=== PATIENT | male | born 1985 | race Caucasian/White ===

== ENCOUNTER 2016-05-05 13:10 | Outpatient (CLI) | payer MEDICAID | END 2016-05-05 13:11 | disposition home or self-care (01) | DX: Z79.899 Other long term (current) drug therapy (principal) ==

== ENCOUNTER 2016-08-04 15:09 | Emergency (ER) | payer MEDICAID, OTHER ==
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
[2016-08-04] MEDS ORDERED: HYDROcod/ACETAM 5/325 MG TABLET ONE (16:04)
[2016-08-04] MEDS ORDERED: METHOCARBAMOL 500 MG TABLET PO ONE (16:05)
[2016-08-04] MEDS: METHOCARBAMOL 500 MG TABLET PO STA (16:07)
[2016-08-04] MEDS: HYDROcod/ACETAM 5/325 MG TABLET PO STA (16:07)
[2016-08-04 16:49] VITALS: BP 141/84
[2016-08-04] MEDS ORDERED: HYDROcod/ACET 5/325 Prepack 6 PO ONE (17:37)
[2016-08-04] MEDS: HYDROcod/ACET 5/325 Prepack 6 PO ONE (17:42)
--- NOTE | 2016-08-04 17:45 | XRAY Preliminary Report ---
Exam: XR Cervical Spine 2 View IMPRESSION: Normal cervical spine radiography. [facility] SITE ID: [id number]
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
== END 2016-08-04 17:54 | disposition home or self-care (01) ==
LOC: ED 15:09
DX: S16.1XXA Strain of muscle, fascia and tendon at neck level, initial encounter (principal); Y04.2XXA Assault by strike against or bumped into by another person, initial encounter; Y92.019 Unspecified place in single-family (private) house as the place of occurrence of the external cause; F17.200 Nicotine dependence, unspecified, uncomplicated
CPT/HCPCS: 72040; 99283; 99284

== ENCOUNTER 2017-04-16 15:00 | Outpatient (CLI) | payer MEDICAID | END 2017-04-16 15:15 | disposition home or self-care (01) | LOC: RT.N 15:00 | PROVIDERS: ATTEND Family Medicine | DX: R07.9 Chest pain, unspecified (principal) | CPT/HCPCS: 93005 ==

== ENCOUNTER 2017-04-16 15:54 | Outpatient (CLI) | payer MEDICAID, OTHER ==
--- NOTE | 2017-04-17 12:31 | XRAY Report ---
DATE OF SERVICE: 04/16/2017 TWO-VIEW CHEST: 04/16/2017 CLINICAL INDICATION: Obesity, chest pain. FINDINGS: Frontal and lateral views of the chest demonstrate a normal cardiac silhouette. The lungs are clear. No effusion or pneumothorax is present. IMPRESSION: NORMAL CHEST. TD: 04/17/2017 12:29
== END 2017-04-16 15:55 | disposition home or self-care (01) ==
LOC: DI.N 15:54
PROVIDERS: ATTEND Family Medicine
DX: R07.9 Chest pain, unspecified (principal); E66.9 Obesity, unspecified
CPT/HCPCS: 71046

== ENCOUNTER 2017-05-11 10:44 | Emergency (ER) | payer MEDICAID ==
--- NOTE | 2017-05-11 11:15 | ED Physician Documentation ---
PD HPI LOWER EXT INJURY - Stated complaint Stated Complaint: LEG PX - Chief complaint Chief Complaint: Ext Problem - History obtained from History obtained from: Patient - History of Present Illness PD HPI LOW EXT INJURY LOCATION: Left, Lower leg Type of injury: Other (he was walking brisk and felt a pop and pain in upper calf/behind the knee area.) Where injury occurred: Work Timing - onset: Yesterday Timing - details: Abrupt onset, Still present Improved by: Rest Worsened by: Moving, Palpating Associated symptoms: No: Weakness, Numbness Similar symptoms before: Has not had sx before Recently seen: Not recently seen Review of Systems Constitutional: denies: Fever, Chills Skin: denies: Rash, Lesions Neurologic: denies: Focal weakness, Numbness PD PAST MEDICAL HISTORY - Past Medical History Past Medical History: Yes Cardiovascular: None Respiratory: None Neuro: None Psych: Depression, Bipolar disorder Musculoskeletal: None - Past Surgical History Past Surgical History: No - Present Medications Home Medications: Ambulatory Orders Medication Instructions Recorded Confirmed raNITIdine [Zantac] 150 mg PO DAILY 02/05/15 08/07/15 QUEtiapine [SEROquel] 50 mg PO DAILY 08/07/15 08/07/15 Loratadine 1 tab PO DAILY 05/11/17 Naproxen [Naprosyn] 500 mg PO BID PRN #20 tablet 05/11/17 Tramadol HCl 50 mg PO Q6H PRN #20 tablet 05/11/17 - Allergies Allergies/Adverse Reactions: Allergies Allergy/AdvReac Type Severity Reaction Status Date / Time No Known Drug Allergies Allergy Verified 05/11/17 10:50 - Social History Does the pt smoke?: Yes Smoking Status: Current every day smoker Does the pt drink ETOH?: No Does the pt have substance abuse?: No - Immunizations Immunizations are current?: Yes - POLST Patient has POLST: No PD ED PE NORMAL - Vitals Vital signs reviewed: Yes - General General: Alert and oriented X 3, No acute distress, Well developed/nourished - Cardiac Cardiac: RRR, No murmur - Back Back: No spinal TTP - Derm Derm: Normal color, Warm and dry, No rash - Extremities Extremities: Other (left leg with teenderness posterior upper calf and to the popliteal area of the knee. No obvious deformity. Ligament testing is without laxity. Hamstrings feel intact as does Achilles. Some swelling in upper calf area on octavio left. Pain with knee flexion against resistence. Not painful with plantar flexion against resistance. ) - Neuro Neuro: No motor deficit, No sensory deficit Results - Vitals Vitals: Vital Signs - 24 hr 05/11/17 05/11/17 10:46 12:39 Temperature 36.9 C 36.7 C Heart Rate 100 80 Respiratory 16 16 Rate Blood Pressure 122/72 132/74 H O2 Saturation 98 98 Oxygen O2 Source Room air - Rads (name of study) tib/fib Radiology: Prelim report reviewed (no fractures) PD MEDICAL DECISION MAKING - ED course Complexity details: reviewed results, considered differential, d/w patient Departure - Departure Disposition: 01 Home, Self Care Clinical Impression: Strain of calf muscle Qualifiers: Encounter type: initial encounter Laterality: left Qualified Code(s): S86.812A - Strain of other muscle(s) and tendon(s) at lower leg level, left leg, initial encounter Condition: Stable Record reviewed to determine appropriate education?: Yes Instructions: ED Strain Muscle Ext Follow-Up: Daryl Toney MD [Primary Care Provider] - Black Hurst MD [Provider Admit Priv/Credential] - Prescriptions: Naproxen [Naprosyn] 500 mg PO BID PRN #20 tablet PRN Reason: Pain Tramadol HCl 50 mg PO Q6H PRN #20 tablet PRN Reason: Pain Comments: Knee brace to reduce range of motion and provide comfort and support. Use crutches if needed for partial weightbearing. Progress weightbearing as able and then after week or so if it is feeling better then start going without the knee brace if he can. This is likely going to take 3 or 4 weeks to fully heal up back to normal use. I presume he tore part of the muscles. He does not feel like it tore a tendon that should be able to heal without repair per se. Use naproxen or ibuprofen twice daily for the next 7-10 days and add Tylenol or tramadol if needed for pains. Recheck if not better quite a bit over the next week or 10 days. Discharge Date/Time: 05/11/17 13:00
[2017-05-11] MEDS ORDERED: IBUPROFEN 600 MG TABLET PO STA (11:29)
[2017-05-11] MEDS ORDERED: traMADol 50 MG TABLET PO STA (11:30)
[2017-05-11 12:40] VITALS: BP 132/74
--- NOTE | 2017-05-11 12:52 | XRAY Report ---
EXAM: LEFT TIBIA/FIBULA RADIOGRAPHY 2 VIEWS EXAM DATE: 05/11/2017. CLINICAL HISTORY: Left calf/lower leg pain, onset yesterday. COMPARISON: None. TECHNIQUE: AP and lateral views. FINDINGS: Bones: Normal. No fracture or bone lesion. Joints: The visualized knee and ankle joints appear normal. No knee joint effusion visible. Soft Tissues: Normal. No soft tissue swelling. IMPRESSION: Normal left tibia/fibula radiography. [facility] Referring Provider Line: [phone] SITE ID: [id number]
== END 2017-05-11 13:00 | disposition home or self-care (01) ==
LOC: ED 10:44
DX: S86.812A Strain of other muscle(s) and tendon(s) at lower leg level, left leg, initial encounter (principal); X58.XXXA Exposure to other specified factors, initial encounter; Y93.01 Activity, walking, marching and hiking; F17.200 Nicotine dependence, unspecified, uncomplicated
CPT/HCPCS: 73590; 99283; A9270

== ENCOUNTER 2018-07-04 10:35 | Emergency (ER) | payer MEDICAID ==
[2018-07-04 10:42] VITALS: BP 146/95
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
== END 2018-07-04 10:58 | disposition home or self-care (01) ==
LOC: ED 10:35
DX: K02.9 Dental caries, unspecified (principal); F17.200 Nicotine dependence, unspecified, uncomplicated
CPT/HCPCS: 99283

== ENCOUNTER 2018-07-24 13:52 | Emergency (ER) | payer MEDICAID ==
[2018-07-24 14:24] VITALS: BP 137/89
[2018-07-24] MEDS ORDERED: CLINDAMYCIN 150 MG CAPSULE PO STA (14:58)
[2018-07-24] MEDS ORDERED: HYDROcod/ACETAM 5/325 MG TABLET PO STA (14:58)
--- NOTE | 2018-07-24 15:00 | ED Physician Documentation ---
PD HPI HEENT - Stated complaint Stated Complaint: TOOTH PX - Chief complaint Chief Complaint: Heent - History obtained from History obtained from: Patient - History of Present Illness Timing - onset: Other (He is been dealing with a dental infection from the left maxilla that is quite painful. He has an appoint with [facility] in about 2 weeks, but pain is uncontrolled. He was seen here recently and placed on penicillin which he is finished, no real help with that. Hydrocodone was helpful.) Review of Systems Constitutional: reports: Reviewed and negative Nose: reports: Reviewed and negative Throat: reports: Dental pain / toothache. denies: Oral lesions / sores, Sore throat Cardiac: denies: Chest pain / pressure PD PAST MEDICAL HISTORY - Past Medical History Cardiovascular: None Respiratory: None Psych: Depression, Bipolar disorder Musculoskeletal: None - Past Surgical History Past Surgical History: No - Present Medications Home Medications: Ambulatory Orders Medication Instructions Recorded Confirmed QUEtiapine [SEROquel] 50 mg PO DAILY 08/07/15 08/07/15 Hydrocodone/Acetaminophen 1 - 2 each PO Q6H PRN #14 tablet 07/04/18 [Hydrocodon-Acetaminophen 5-325] Penicillin V Potassium 500 mg PO Q6HR #40 tablet 07/04/18 QUEtiapine [SEROquel] 200 mg PO QPM 07/04/18 07/04/18 Clindamycin HCl [Clindamycin 300MG 300 mg PO Q6H #40 capsule 07/24/18 CAP] Hydrocodone/Acetaminophen 1 - 2 each PO Q6H PRN #14 tablet 07/24/18 [Hydrocodon-Acetaminophen 5-325] - Allergies Allergies/Adverse Reactions: Allergies Allergy/AdvReac Type Severity Reaction Status Date / Time No Known Drug Allergies Allergy Verified 07/24/18 14:58 - Social History Does the pt smoke?: Yes Smoking Status: Current every day smoker Does the pt drink ETOH?: No Does the pt have substance abuse?: No - Immunizations Immunizations are current?: Yes - POLST Patient has POLST: No PD ED PE NORMAL - Vitals Vital signs reviewed: Yes - General General: Alert and oriented X 3, No acute distress - HEENT HEENT: Other (Generally poor dentition, tooth in question is a left maxillary premolar that is tender but there is no trismus, sublingual edema, or facial or gingival swelling.) - Neck Neck: Supple, no meningeal sign, No bony TTP - Neuro Neuro: Alert and oriented X 3, Normal speech Results - Vitals Vitals: Vital Signs - 24 hr 07/24/18 14:21 Temperature 37.3 C Heart Rate 105 H Respiratory 17 Rate Blood Pressure 137/89 H O2 Saturation 98 Oxygen O2 Source Room air Departure - Departure Disposition: Home, Self Care Clinical Impression: Toothache Condition: Good Record reviewed to determine appropriate education?: Yes Instructions: ED Tooth Pain Follow-Up: Panchito Stuart DDS [Provider Admit Priv/Credential] - Prescriptions: Clindamycin HCl [Clindamycin 300MG CAP] 300 mg PO Q6H #40 capsule Hydrocodone/Acetaminophen [Hydrocodon-Acetaminophen 5-325] 1 - 2 each PO Q6H PRN #14 tablet PRN Reason: pain
== END 2018-07-24 15:11 | disposition home or self-care (01) ==
LOC: ED 13:52
DX: K08.89 Other specified disorders of teeth and supporting structures (principal); F17.200 Nicotine dependence, unspecified, uncomplicated
CPT/HCPCS: 99283; A9270

== ENCOUNTER 2018-09-28 17:21 | Emergency (ER) | payer MEDICAID ==
[2018-09-28 17:34] VITALS: BP 167/98
--- NOTE | 2018-09-28 17:51 | ED Physician Documentation ---
History of Present Illness - Stated complaint Stated Complaint: TOOTH PX - Chief complaint Chief Complaint: Heent - History obtained from History obtained from: Patient - History of Present Illness Timing: How many weeks ago (1) Pain level max: 8 Pain level now: 8 - Additonal information Additional information: 33-year-old male presents to the emergency department with frontal tooth pain. Ongoing for the past week. Has a long history of dental disease. States he is unable to see a dentist at this time. He is requesting pain medication and antibiotics. No fevers. Nothing makes it better or worse Review of Systems Constitutional: denies: Fever, Chills GI: denies: Vomiting Skin: denies: Rash Musculoskeletal: denies: Neck pain, Back pain Neurologic: denies: Headache PD PAST MEDICAL HISTORY - Past Medical History Past Medical History: Yes Cardiovascular: None Respiratory: COPD Psych: Depression, Bipolar disorder Musculoskeletal: None - Past Surgical History Past Surgical History: No - Present Medications Home Medications: Ambulatory Orders Medication Instructions Recorded Confirmed QUEtiapine [SEROquel] 50 mg PO DAILY 08/07/15 08/07/15 Hydrocodone/Acetaminophen 1 - 2 each PO Q6H PRN #14 tablet 07/04/18 [Hydrocodon-Acetaminophen 5-325] Penicillin V Potassium 500 mg PO Q6HR #40 tablet 07/04/18 QUEtiapine [SEROquel] 200 mg PO QPM 07/04/18 07/04/18 Clindamycin HCl [Clindamycin 300MG 300 mg PO Q6H #40 capsule 07/24/18 CAP] Hydrocodone/Acetaminophen 1 - 2 each PO Q6H PRN #14 tablet 07/24/18 [Hydrocodon-Acetaminophen 5-325] Hydrocodone/Acetaminophen 1 - 2 each PO Q6H PRN #14 tablet 09/28/18 [Hydrocodon-Acetaminophen 5-325] Penicillin V Potassium 500 mg PO Q6HR #40 tablet 09/28/18 - Allergies Allergies/Adverse Reactions: Allergies Allergy/AdvReac Type Severity Reaction Status Date / Time No Known Drug Allergies Allergy Verified 09/28/18 17:33 - Social History Does the pt smoke?: Yes Smoking Status: Current every day smoker Does the pt drink ETOH?: No Does the pt have substance abuse?: No - Immunizations Immunizations are current?: Yes - POLST Patient has POLST: No PD ED PE NORMAL - Vitals Vital signs reviewed: Yes - General General: Alert and oriented X 3, No acute distress - HEENT HEENT: Moist mucous membranes, Other (diffuse dental decay. no drainable absces s. ) - Neck Neck: Supple, no meningeal sign - Cardiac Cardiac: RRR - Respiratory Respiratory: No respiratory distress, Clear bilaterally - Derm Derm: Warm and dry - Neuro Neuro: Alert and oriented X 3 - Psych Psych: Normal mood, Normal affect Results - Vitals Vitals: Vital Signs - 24 hr 09/28/18 17:31 Temperature 36.7 C Heart Rate 94 Respiratory 20 Rate Blood Pressure 167/98 H O2 Saturation 95 Oxygen O2 Source Room air PD MEDICAL DECISION MAKING - ED course Complexity details: reviewed old records, considered differential, d/w patient ED course: Patient with diffuse dental decay. Will place on pain medication and antibiotics. We will follow-up with his doctor for further care. Patient counseled regarding signs and symptoms for which I believe and urgent re- evaluation would be necessary. Patient with good understanding of and agreement to plan and is comfortable going home at this time This document was made in part using voice recognition software. While efforts are made to proofread this document, sound alike and grammatical errors may occur. Departure - Departure Disposition: 01 Home, Self Care Clinical Impression: Dental decay Condition: Good Instructions: ED Cavity Dental Follow-Up: your,dentist within 1 week [Other] Prescriptions: Penicillin V Potassium 500 mg PO Q6HR #40 tablet Hydrocodone/Acetaminophen [Hydrocodon-Acetaminophen 5-325] 1 - 2 each PO Q6H PRN #14 tablet PRN Reason: pain Comments: Take all antibiotics until gone. Return if you worsen. You need to follow-up with a dentist for further care. Do not drink alcohol or drive while on narcotic pain medicine. Note that many narcotic pain relievers also contain tylenol/acetaminophen. Please ensure that your total dose of acetaminophen from all sources does not exceed 3 grams (3000mg) per day. You may constipated on this medication, take a stool softener such as "Colace" twice a day while you are on it. Also recommend a jybq-awa-qppwfwa laxative such as senna or MiraLAX any day that you do not have a bowel movement. If you received narcotic pain medication in the emergency department, do not drive or operate machinery for the next 24 hours. Discharge Date/Time: 09/28/18 18:01
== END 2018-09-28 18:01 | disposition home or self-care (01) ==
LOC: ED 17:21
DX: K02.9 Dental caries, unspecified (principal); J44.9 Chronic obstructive pulmonary disease, unspecified; F17.200 Nicotine dependence, unspecified, uncomplicated
CPT/HCPCS: 99282; 99284

== ENCOUNTER 2018-10-21 17:06 | Emergency (ER) | payer MEDICAID, OTHER ==
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
--- NOTE | 2018-10-21 19:21 | ED Physician Documentation ---
PD HPI LOWER EXT INJURY - Stated complaint Stated Complaint: RT FOOT INJ/WORK - Chief complaint Chief Complaint: Ext Problem - History obtained from History obtained from: Patient, Family - History of Present Illness PD HPI LOW EXT INJURY LOCATION: Right, Ankle Type of injury: Crush (dock) Where injury occurred: Work Timing - onset: How many hours ago (4) Timing - duration: Hours (4) Timing - details: Abrupt onset Pain level max: 5 Pain level now: 3 Improved by: Rest, Ice, Immobilization Worsened by: Moving, Palpating Associated symptoms: Swelling. No: Weakness, Numbness, Tingling Contributing factors: No: Anticoagulated, Prior ortho surgery, Prosthetic joint Recently seen: Not recently seen Review of Systems Skin: denies: Rash Musculoskeletal: denies: Neck pain, Back pain Neurologic: denies: Focal weakness, Numbness PD PAST MEDICAL HISTORY - Past Medical History Cardiovascular: None Respiratory: COPD Psych: Depression, Bipolar disorder Musculoskeletal: None - Past Surgical History Past Surgical History: No - Present Medications Home Medications: Ambulatory Orders Medication Instructions Recorded Confirmed QUEtiapine [SEROquel] 50 mg PO DAILY 08/07/15 08/07/15 QUEtiapine [SEROquel] 200 mg PO QPM 07/04/18 07/04/18 - Allergies Allergies/Adverse Reactions: Allergies Allergy/AdvReac Type Severity Reaction Status Date / Time No Known Drug Allergies Allergy Verified 10/21/18 17:24 - Social History Does the pt smoke?: Yes Smoking Status: Current every day smoker Does the pt drink ETOH?: No Does the pt have substance abuse?: No - Immunizations Immunizations are current?: Yes - POLST Patient has POLST: No PD ED PE NORMAL - Vitals Vital signs reviewed: Yes - General General: Alert and oriented X 3, No acute distress - Derm Derm: Warm and dry - Extremities Extremities: No deformity, Other (Tender to palpation diffusely about the right foot and ankle. Neurovascularly intact. No lacerations.) - Neuro Neuro: Alert and oriented X 3 Results - Vitals Vitals: Oxygen O2 Source Room air - Rads (name of study) R foot xray Radiology: Prelim report reviewed, EMP read contemporaneously, See rad report (No acute abnormality) R ankle xray Radiology: Prelim report reviewed, EMP read contemporaneously, See rad report (No acute abnormality) PD MEDICAL DECISION MAKING - ED course Complexity details: reviewed results, re-evaluated patient, considered differential, d/w patient ED course: Patient with a right ankle sprain. No acute findings on x-ray. Placed in Aircast. Will weight-bear as tolerated. Patient counseled regarding signs and symptoms for which I believe and urgent re-evaluation would be necessary. Patient with good understanding of and agreement to plan and is comfortable going home at this time This document was made in part using voice recognition software. While efforts are made to proofread this document, sound alike and grammatical errors may occur. Departure - Departure Disposition: 01 Home, Self Care Clinical Impression: Right ankle sprain Qualifiers: Encounter type: initial encounter Involved ligament of ankle: unspecified ligament Qualified Code(s): S93.401A - Sprain of unspecified ligament of right ankle, initial encounter Right foot sprain Qualifiers: Encounter type: initial encounter Qualified Code(s): S93.601A - Unspecified sprain of right foot, initial encounter Condition: Good Instructions: ED Sprain Foot, ED Sprain Ankle Follow-Up: Whitney Roper PA-C [Primary Care Provider] - Within 1 week Comments: You may bear weight as tolerated. Return if you worsen. Your x-rays do not show any fractures today. Follow-up with your doctor in 1 week for repeat evaluation if you are still having pain. Discharge Date/Time: 10/21/18 19:34
[2018-10-21 19:35] VITALS: BP 155/87
== END 2018-10-21 19:34 | disposition home or self-care (01) ==
LOC: ED 17:06
DX: S93.401A Sprain of unspecified ligament of right ankle, initial encounter (principal); S93.601A Unspecified sprain of right foot, initial encounter; W23.0XXA Caught, crushed, jammed, or pinched between moving objects, initial encounter; Y92.89 Other specified places as the place of occurrence of the external cause; Y99.0 Civilian activity done for income or pay; F17.200 Nicotine dependence, unspecified, uncomplicated
CPT/HCPCS: 99282; 99283

== ENCOUNTER 2018-11-06 22:21 | Emergency (ER) | payer MEDICAID ==
[2018-11-06 22:29] VITALS: BP 160/97
[2018-11-06] MEDS ORDERED: HYDROcod/ACET 5/325 Prepack 4 PO STA (22:35)
[2018-11-06] MEDS ORDERED: CLINDAMYCIN 150 MG CAPSULE PO STA (22:35)
--- NOTE | 2018-11-06 22:38 | ED Physician Documentation ---
PD HPI HEENT - Stated complaint Stated Complaint: DENTAL PAIN - Chief complaint Chief Complaint: Heent - History obtained from History obtained from: Patient - History of Present Illness Timing - onset: Other (2 to 3 days of severe dental pain from a right mandibular premolar. He has a dental appointment coming up for same. No facial swelling. No fevers.) Review of Systems Constitutional: denies: Fever, Chills Nose: denies: Rhinorrhea / runny nose Throat: denies: Sore throat PD PAST MEDICAL HISTORY - Past Medical History Past Medical History: Yes Cardiovascular: None Respiratory: COPD Neuro: None Endocrine/Autoimmune: None GI: None : None HEENT: None Psych: Depression, Bipolar disorder Musculoskeletal: None Derm: None - Past Surgical History Past Surgical History: No - Present Medications Home Medications: Ambulatory Orders Medication Instructions Recorded Confirmed QUEtiapine [SEROquel] 50 mg PO DAILY 08/07/15 08/07/15 QUEtiapine [SEROquel] 200 mg PO QPM 07/04/18 07/04/18 Clindamycin HCl [Clindamycin 300MG 300 mg PO Q6H #28 capsule 11/06/18 CAP] Hydrocodone/Acetaminophen 1 - 2 each PO Q6H PRN #14 tablet 11/06/18 [Hydrocodon-Acetaminophen 5-325] - Allergies Allergies/Adverse Reactions: Allergies Allergy/AdvReac Type Severity Reaction Status Date / Time No Known Drug Allergies Allergy Verified 11/06/18 22:29 - Social History Does the pt smoke?: Yes Smoking Status: Current every day smoker Does the pt drink ETOH?: No Does the pt have substance abuse?: No - Immunizations Immunizations are current?: Yes - POLST Patient has POLST: No PD ED PE NORMAL - Vitals Vital signs reviewed: Yes - General General: Alert and oriented X 3, Other (He appears uncomfortable) - Neck Neck: Other (Generally poor dentition with a lot of cavities. The tender cavity in question is from right mandibular premolar which is eroded basically down to the gumline. There is no gingival swelling, facial swelling, or trismus. No sublingual edema.) - Neuro Neuro: Alert and oriented X 3, Normal speech Results - Vitals Vitals: Vital Signs - 24 hr 11/06/18 22:28 Temperature 36.5 C Heart Rate 82 Respiratory 18 Rate Blood Pressure 160/97 H O2 Saturation 98 Oxygen O2 Source Room air Departure - Departure Disposition: 01 Home, Self Care Clinical Impression: Pain due to dental caries Condition: Good Record reviewed to determine appropriate education?: Yes Instructions: ED Tooth Pain Prescriptions: Clindamycin HCl [Clindamycin 300MG CAP] 300 mg PO Q6H #28 capsule Hydrocodone/Acetaminophen [Hydrocodon-Acetaminophen 5-325] 1 - 2 each PO Q6H PRN #14 tablet PRN Reason: pain Comments: Keep the dental appointment you have Return for new or worsening symptoms. Do not drink or drive while taking narcotic pain medication. Note that many narcotic pain relievers also contain Tylenol/acetaminophen. Please ensure that your total dose of acetaminophen from all sources does not exceed 3 g (3000 mg) per day. You may get constipated while on this medication. Take a stool softener such as Colace twice a day while you are on it. Also add an yyil-zeb-gufkkua laxative such as senna or MiraLAX on any day that you do not have a bowel movement. If you received a narcotic pain medication or sedative while in the emergency department, do not drive for the next 24 hours.
== END 2018-11-06 22:45 | disposition home or self-care (01) ==
LOC: ED 22:21
DX: K02.9 Dental caries, unspecified (principal); F17.200 Nicotine dependence, unspecified, uncomplicated
CPT/HCPCS: 99282; 99283; A9270

== ENCOUNTER 2018-11-16 16:38 | Emergency (ER) | payer MEDICAID ==
[2018-11-16 16:43] VITALS: BP 124/81
[2018-11-16] MEDS ORDERED: oxyCODONE 5 MG TABLET PO STA (17:10)
[2018-11-16] MEDS ORDERED: AMOX/CLAV 875 MG/125 MG TABLET PO STA (17:10)
--- NOTE | 2018-11-16 17:12 | ED Physician Documentation ---
History of Present Illness - Stated complaint Stated Complaint: TOOTH PX - Chief complaint Chief Complaint: Heent - History obtained from History obtained from: Patient, Family - History of Present Illness Timing: How many weeks ago (several) Pain level max: 9 Pain level now: 9 - Additonal information Additional information: 33-year-old male with dental pain that is been ongoing for several weeks. Recently placed on clindamycin, states it is not helping. Tried to see his dentist but they were unable to get him in. Came here for evaluation. No fevers. No facial swelling. Nothing makes it better. Worse with eating and drinking Review of Systems Constitutional: denies: Fever, Chills GI: denies: Vomiting, Diarrhea Skin: denies: Rash PD PAST MEDICAL HISTORY - Past Medical History Cardiovascular: None Respiratory: COPD Neuro: None Endocrine/Autoimmune: None GI: None : None HEENT: None Psych: Depression, Bipolar disorder Musculoskeletal: None Derm: None - Past Surgical History Past Surgical History: No - Present Medications Home Medications: Ambulatory Orders Medication Instructions Recorded Confirmed QUEtiapine [SEROquel] 50 mg PO DAILY 08/07/15 08/07/15 QUEtiapine [SEROquel] 200 mg PO QPM 07/04/18 07/04/18 Clindamycin HCl [Clindamycin 300MG 300 mg PO Q6H #28 capsule 11/06/18 CAP] Hydrocodone/Acetaminophen 1 - 2 each PO Q6H PRN #14 tablet 11/06/18 [Hydrocodon-Acetaminophen 5-325] Amox/Clav 875/125 [Augmentin] 1 each PO Q12H #20 tablet 11/16/18 Oxycodone HCl/Acetaminophen 1 - 2 each PO Q6H PRN #14 tablet 11/16/18 [Percocet 5-325 mg Tablet] - Allergies Allergies/Adverse Reactions: Allergies Allergy/AdvReac Type Severity Reaction Status Date / Time No Known Drug Allergies Allergy Verified 11/06/18 22:29 - Social History Does the pt smoke?: Yes Smoking Status: Current every day smoker Does the pt drink ETOH?: No Does the pt have substance abuse?: No Substance Use and Type: Marijuana - Immunizations Immunizations are current?: Yes - POLST Patient has POLST: No PD ED PE NORMAL - Vitals Vital signs reviewed: Yes - General General: Alert and oriented X 3, No acute distress, Well developed/nourished - HEENT HEENT: Moist mucous membranes, Other (Diffuse dental decay. No gingival swelling or abscess. Tender over the right lower mandible and molar.) - Neck Neck: Supple, no meningeal sign - Cardiac Cardiac: RRR - Respiratory Respiratory: No respiratory distress, Clear bilaterally - Derm Derm: Warm and dry - Neuro Neuro: Alert and oriented X 3 - Psych Psych: Normal mood, Normal affect Results - Vitals Vitals: Vital Signs - 24 hr 11/16/18 16:41 Temperature 36.4 C L Heart Rate 89 Respiratory 16 Rate Blood Pressure 124/81 H O2 Saturation 100 Oxygen O2 Source Room air PD MEDICAL DECISION MAKING - ED course Complexity details: reviewed old records, considered differential, d/w patient, d/w family ED course: Patient with diffuse dental decay. Will place on pain medication and antibiotics for home. He is well-appearing, nontoxic. Afebrile. No facial swelling. No drainable abscess. Normal phonation. No trismus. No Ji's angina. Patient counseled regarding signs and symptoms for which I believe and urgent re-evaluation would be necessary. Patient with good understanding of and agreement to plan and is comfortable going home at this time This document was made in part using voice recognition software. While efforts are made to proofread this document, sound alike and grammatical errors may occur. Departure - Departure Disposition: 01 Home, Self Care Clinical Impression: Pain due to dental caries, Dental decay Condition: Good Instructions: ED Tooth Pain, ED Cavity Dental Follow-Up: Whitney Roper PA-C [Primary Care Provider] - Within 1 week Prescriptions: Amox/Clav 875/125 [Augmentin] 1 each PO Q12H #20 tablet Oxycodone HCl/Acetaminophen [Percocet 5-325 mg Tablet] 1 - 2 each PO Q6H PRN #14 tablet PRN Reason: pain Comments: Take all antibiotics until gone. Return if you worsen. Follow up with your dentist this week. Do not drink alcohol or drive while on narcotic pain medicine. Note that many narcotic pain relievers also contain tylenol/acetaminophen. Please ensure that your total dose of acetaminophen from all sources does not exceed 3 grams (3000mg) per day. You may constipated on this medication, take a stool softener such as "Colace" twice a day while you are on it. Also recommend a etha-cka-blxfnhe laxative such as senna or MiraLAX any day that you do not have a bowel movement. If you received narcotic pain medication in the emergency department, do not drive or operate machinery for the next 24 hours. Discharge Date/Time: 11/16/18 17:37
== END 2018-11-16 17:37 | disposition home or self-care (01) ==
LOC: ED 16:38
DX: K02.9 Dental caries, unspecified (principal); F17.200 Nicotine dependence, unspecified, uncomplicated
CPT/HCPCS: 99282; 99283; A9270

== ENCOUNTER 2019-01-19 14:15 | Emergency (ER) | payer MEDICAID, OTHER ==
[2019-01-19] MEDS ORDERED: AMOX/CLAV 875 MG/125 MG TABLET PO STA (14:35)
[2019-01-19] MEDS ORDERED: oxyCODONE 5 MG TABLET PO STA (14:35)
--- NOTE | 2019-01-19 14:40 | ED Physician Documentation ---
PD HPI HEENT - Stated complaint Stated Complaint: DENTAL PX - Chief complaint Chief Complaint: Heent - History obtained from History obtained from: Patient, Family - History of Present Illness Timing - onset: How many weeks ago (1) Timing - duration: Weeks (1) Timing - details: Gradual onset Pain level max: 8 Pain level now: 8 Location: Tooth (r lower tooth) Improves: Nothing Worsens: No: Swalllowing, Noise, Position, Temperatures Associated symptoms: No: Fever, Congestion, Rhinorrhea, Trismus, Unable to swallow, Swollen nodes, Facial swelling, Headache Recently seen: Not recently seen Review of Systems Constitutional: denies: Fever, Chills Nose: denies: Rhinorrhea / runny nose, Congestion Respiratory: denies: Cough GI: denies: Nausea, Vomiting, Diarrhea Musculoskeletal: denies: Neck pain, Back pain Neurologic: denies: Headache PD PAST MEDICAL HISTORY - Past Medical History Cardiovascular: None Respiratory: COPD Neuro: None Endocrine/Autoimmune: None GI: None : None HEENT: None Psych: Depression, Bipolar disorder Musculoskeletal: None Derm: None - Past Surgical History Past Surgical History: No - Present Medications Home Medications: Ambulatory Orders Medication Instructions Recorded Confirmed QUEtiapine [SEROquel] 50 mg PO DAILY 08/07/15 08/07/15 QUEtiapine [SEROquel] 200 mg PO QPM 07/04/18 07/04/18 Clindamycin HCl [Clindamycin 300MG 300 mg PO Q6H #28 capsule 11/06/18 CAP] Hydrocodone/Acetaminophen 1 - 2 each PO Q6H PRN #14 tablet 11/06/18 [Hydrocodon-Acetaminophen 5-325] Amox/Clav 875/125 [Augmentin] 1 each PO Q12H #20 tablet 11/16/18 Oxycodone HCl/Acetaminophen 1 - 2 each PO Q6H PRN #14 tablet 11/16/18 [Percocet 5-325 mg Tablet] Amox/Clav 875/125 [Augmentin] 1 each PO Q12H #20 tablet 01/19/19 Oxycodone HCl/Acetaminophen 1 - 2 each PO Q6H PRN #14 tablet 01/19/19 [Percocet 5-325 mg Tablet] - Allergies Allergies/Adverse Reactions: Allergies Allergy/AdvReac Type Severity Reaction Status Date / Time No Known Drug Allergies Allergy Verified 11/06/18 22:29 - Social History Does the pt smoke?: Yes Smoking Status: Current every day smoker Does the pt drink ETOH?: No Does the pt have substance abuse?: No - Immunizations Immunizations are current?: Yes - POLST Patient has POLST: No PD ED PE NORMAL - Vitals Vital signs reviewed: Yes - General General: Alert and oriented X 3, No acute distress - HEENT HEENT: Moist mucous membranes, Other (Poor dentition throughout. Right lower molar with a very small abscess right at the base of the tooth next to the gumline. Patient states it drained spontaneously. No facial swelling. No Ji's angina) - Neck Neck: Supple, no meningeal sign - Cardiac Cardiac: RRR - Respiratory Respiratory: No respiratory distress, Clear bilaterally - Derm Derm: Warm and dry - Neuro Neuro: Alert and oriented X 3 Results - Vitals Vitals: Vital Signs - 24 hr 01/19/19 01/19/19 14:17 14:44 Temperature 37.1 C Heart Rate 83 84 Respiratory 17 18 Rate Blood Pressure 165/82 H 142/85 H O2 Saturation 98 96 Oxygen O2 Source Room air PD MEDICAL DECISION MAKING - ED course Complexity details: reviewed old records, considered differential, d/w patient, d/w family ED course: Patient with dental caries. Will place on antibiotics and pain medication. We will have him follow-up with his dentist for further care. Patient counseled regarding signs and symptoms for which I believe and urgent re-evaluation would be necessary. Patient with good understanding of and agreement to plan and is comfortable going home at this time This document was made in part using voice recognition software. While efforts are made to proofread this document, sound alike and grammatical errors may occur. Departure - Departure Disposition: 01 Home, Self Care Clinical Impression: Dental caries Condition: Good Instructions: ED Cavity Dental Follow-Up: your,dentist in 1week [Other] Prescriptions: Amox/Clav 875/125 [Augmentin] 1 each PO Q12H #20 tablet Oxycodone HCl/Acetaminophen [Percocet 5-325 mg Tablet] 1 - 2 each PO Q6H PRN #14 tablet PRN Reason: pain Comments: Return if you worsen. Follow-up with your doctor for further care. Follow-up with your dentist for further evaluation of your tooth. Take all antibiotics until gone. Do not drink alcohol or drive while on narcotic pain medicine. Note that many narcotic pain relievers also contain tylenol/acetaminophen. Please ensure that your total dose of acetaminophen from all sources does not exceed 3 grams (3000mg) per day. You may constipated on this medication, take a stool softener such as "Colace" twice a day while you are on it. Also recommend a rggb-zlz-mhwwvzy laxative such as senna or MiraLAX any day that you do not have a bowel movement. If you received narcotic pain medication in the emergency department, do not drive or operate machinery for the next 24 hours. Discharge Date/Time: 01/19/19 14:45
[2019-01-19 14:45] VITALS: BP 142/85
== END 2019-01-19 14:45 | disposition home or self-care (01) ==
LOC: ED 14:15
DX: K04.7 Periapical abscess without sinus (principal); K02.9 Dental caries, unspecified; F17.200 Nicotine dependence, unspecified, uncomplicated
CPT/HCPCS: 99282; 99284; A9270

== ENCOUNTER 2019-02-24 15:39 | Emergency (ER) | payer OTHER, MEDICAID ==
[2019-02-24 15:59] VITALS: BP 151/79
--- NOTE | 2019-02-24 16:58 | XRAY Report ---
Reason: pain, trauma Procedure Date: 02/24/2019 Accession Number: [id number] / [id number] Procedure: XR - Ankle 3 View RT CPT Code: Final Report FULL RESULT: EXAM: RIGHT ANKLE RADIOGRAPHY EXAM DATE: 02/24/2019 04:37 PM. CLINICAL HISTORY: Fall off tractor. Injury. Pain. COMPARISON: ANKLE 3 VIEW RT 10/21/2018 5:35 PM. TECHNIQUE: 3 views. FINDINGS: Bones: Normal. No fractures or bone lesions. Joints: Normal. No effusion. No subluxations. The ankle mortise is normally aligned. Soft Tissues: Lateral soft tissue swelling. Stable small medial and lateral accessory ossicles. IMPRESSION: No acute bony abnormality. RADIA
--- NOTE | 2019-02-24 17:12 | ED Physician Documentation ---
PD HPI LOWER EXT INJURY - Stated complaint Stated Complaint: R FOOT PX - Chief complaint Chief Complaint: Trauma Ext - History obtained from History obtained from: Patient - History of Present Illness PD HPI LOW EXT INJURY LOCATION: Right, Ankle Type of injury: Fall (from his tractor 1 day ago) Where injury occurred: Street Timing - onset: How many days ago (1) Timing - duration: Days (1) Timing - details: Gradual onset Severity Comments: moderate pain, started this morning when walking Improved by: Rest Worsened by: Moving, Palpating, Other (weight bearing) Associated symptoms: Swelling. No: Weakness, Numbness, Tingling Contributing factors: No: Anticoagulated, Prior ortho surgery Similar symptoms before: Has not had sx before Recently seen: Not recently seen - Treatment prior to arrival Treatment prior to arrival: none Review of Systems Ten Systems: 10 systems reviewed and negative Constitutional: denies: Fever Cardiac: reports: Reviewed and negative Respiratory: reports: Reviewed and negative GI: reports: Reviewed and negative Skin: reports: Reviewed and negative. denies: Abrasion (s), Laceration (s) Musculoskeletal: reports: Joint pain, Joint swelling Neurologic: denies: Generalized weakness, Focal weakness, Numbness, Syncope Endocrine: reports: Reviewed and negative Immunocompromised: reports: Reviewed and negative PD PAST MEDICAL HISTORY - Past Medical History Past Medical History: Yes Cardiovascular: None Respiratory: COPD Neuro: None Endocrine/Autoimmune: None GI: None : None HEENT: None Psych: Depression, Bipolar disorder Musculoskeletal: None Derm: None - Past Surgical History Past Surgical History: No - Present Medications Home Medications: Ambulatory Orders Medication Instructions Recorded Confirmed QUEtiapine [SEROquel] 50 mg PO DAILY 08/07/15 08/07/15 QUEtiapine [SEROquel] 200 mg PO QPM 07/04/18 07/04/18 Clindamycin HCl [Clindamycin 300MG 300 mg PO Q6H #28 capsule 11/06/18 CAP] Hydrocodone/Acetaminophen 1 - 2 each PO Q6H PRN #14 tablet 11/06/18 [Hydrocodon-Acetaminophen 5-325] Amox/Clav 875/125 [Augmentin] 1 each PO Q12H #20 tablet 11/16/18 Oxycodone HCl/Acetaminophen 1 - 2 each PO Q6H PRN #14 tablet 11/16/18 [Percocet 5-325 mg Tablet] Amox/Clav 875/125 [Augmentin] 1 each PO Q12H #20 tablet 01/19/19 Oxycodone HCl/Acetaminophen 1 - 2 each PO Q6H PRN #14 tablet 01/19/19 [Percocet 5-325 mg Tablet] - Allergies Allergies/Adverse Reactions: Allergies Allergy/AdvReac Type Severity Reaction Status Date / Time No Known Drug Allergies Allergy Verified 02/24/19 15:53 - Social History Does the pt smoke?: Yes Smoking Status: Current every day smoker Does the pt drink ETOH?: No Does the pt have substance abuse?: No - Immunizations Immunizations are current?: Yes - POLST Patient has POLST: No PD ED PE NORMAL - General General: Alert and oriented X 3, No acute distress, Well developed/nourished, Other (unkempt) - HEENT HEENT: Atraumatic, Moist mucous membranes - Neck Neck: Supple, no meningeal sign - Cardiac Cardiac: RRR - Respiratory Respiratory: No respiratory distress - Abdomen Abdomen: Non distended - Male Male : Deferred - Rectal Rectal: Deferred - Derm Derm: Normal color, Warm and dry, No rash, Other (mild bruising to R lateral inferior ankle ) - Extremities Extremities: No deformity - Neuro Neuro: Alert and oriented X 3, No motor deficit, No sensory deficit Eye Opening: Spontaneous Motor: Obeys Commands Verbal: Oriented GCS Score: 15 - Psych Psych: Normal mood, Normal affect PD ED PE EXPANDED - Extremities Extremities: Tenderness (posterolateral and medial ankle ), Swelling, Bruising, Right ankle. No: Abrasion, Laceration Results - Vitals Vitals: Vital Signs - 24 hr 02/24/19 15:53 Temperature 37 C Heart Rate 90 Respiratory 18 Rate Blood Pressure 151/79 H O2 Saturation 96 Oxygen O2 Source Room air - Rads (name of study) R ankle xray Radiology: Final report received, See rad report (negative ) PD MEDICAL DECISION MAKING - ED course Complexity details: reviewed results, considered differential, d/w patient, d/w family ED course: ddx- ankle sprain, fracture, dislocation 34 y/o M with R ankle pain after a minor fall from a tractor, isolated ankle injury. neurovascularly intacct. Negative xray. Placed in jamie wrap, advised RICE, NSAIDs and pt is stable for outpt f/u. he declined crutches. Departure - Departure Disposition: 01 Home, Self Care Clinical Impression: Ankle sprain Qualifiers: Encounter type: initial encounter Involved ligament of ankle: unspecified ligament Laterality: right Qualified Code(s): S93.401A - Sprain of unspecified ligament of right ankle, initial encounter Condition: Stable Record reviewed to determine appropriate education?: Yes Instructions: ED Sprain Ankle W X Ray Follow-Up: Whitney Roper PA-C [Primary Care Provider] - As Needed Comments: Your xray is negative for fracture. you have an ankle sprain. Take ibuprofen 600mg every 8 hours for pain and swelling. Ice the ankle. Use the jamie wrap for support. You can bear weight on this as tolerated.
[2019-02-24] MEDS: IBUPROFEN 600 MG TABLET PO STA (17:14)
== END 2019-02-24 17:29 | disposition home or self-care (01) ==
LOC: ED 15:39
DX: S93.401A Sprain of unspecified ligament of right ankle, initial encounter (principal); S90.01XA Contusion of right ankle, initial encounter; W17.89XA Other fall from one level to another, initial encounter; Y93.89 Activity, other specified; F17.200 Nicotine dependence, unspecified, uncomplicated
CPT/HCPCS: 73610; 99283; 99284; A9270

== ENCOUNTER 2019-03-12 03:22 | Emergency (ER) | payer OTHER, MEDICAID ==
--- NOTE | 2019-03-12 04:59 | ED Physician Documentation ---
PD HPI HEENT - Stated complaint Stated Complaint: TOOTH PX - Chief complaint Chief Complaint: Heent - History obtained from History obtained from: Patient - History of Present Illness Timing - onset: Other (dental pain x 2-3 days, cough and sore throat x 2 weeks) Timing - details: Gradual onset Pain level now: 6 Location: Throat, Tooth Improves: Nothing Worsens: Sw[place]ing Associated symptoms: Fever (subjective (has not taken temperature)), Cough - Additional information Additional information: c/o toothache x 2-3 days, as well as 2 weeks of productive cough and sore throat. here with s.o. who is also registered as ED patient with similar symptoms Review of Systems Constitutional: reports: Fever, Chills, Sweats Throat: reports: Dental pain / toothache Cardiac: reports: Reviewed and negative Respiratory: reports: Cough PD PAST MEDICAL HISTORY - Past Medical History Past Medical History: Yes Cardiovascular: None Respiratory: COPD Neuro: None Endocrine/Autoimmune: None GI: None : None HEENT: None Psych: Depression, Bipolar disorder Musculoskeletal: None Derm: None - Past Surgical History Past Surgical History: No - Present Medications Home Medications: Ambulatory Orders Medication Instructions Recorded Confirmed QUEtiapine [SEROquel] 100 mg PO DAILY 08/07/15 03/12/19 QUEtiapine [SEROquel] 200 mg PO QPM 07/04/18 03/12/19 Amoxicillin 500 mg PO BID #19 capsule 03/12/19 HYDROcod/ACETAM 5/325 [[place] 5/325] 1 - 2 ea PO Q6H PRN #15 tablet 03/12/19 - Allergies Allergies/Adverse Reactions: Allergies Allergy/AdvReac Type Severity Reaction Status Date / Time No Known Drug Allergies Allergy Verified 03/12/19 03:35 - Social History Does the pt smoke?: Yes Smoking Status: Current every day smoker Does the pt drink ETOH?: No Does the pt have substance abuse?: No - Immunizations Immunizations are current?: Yes - POLST Patient has POLST: No PD ED PE NORMAL - Vitals Vital signs reviewed: Yes - General General: Alert and oriented X 3, No acute distress, Well developed/nourished - HEENT HEENT: Moist mucous membranes - Respiratory Respiratory: No respiratory distress, Clear bilaterally PD ED PE EXPANDED - HEENT HEENT: Pharyngeal erythema, Tonsillar exudate, Dental decay, Other (Overall poor dentition with extensive wear and attrition. Tenderness to percussion of left maxillary medial incisor without fluctuance or erythema) Results - Vitals Vitals: Oxygen O2 Source Room air PD MEDICAL DECISION MAKING - ED course Complexity details: considered differential, d/w patient ED course: Exudative pharyngitis bilaterally s/o strep. Will tx for this, and abx should provide coverage for possible dental infection should his pain represent early infection that is not yet seen in exam Departure - Departure Disposition: 01 Home, Self Care Clinical Impression: Toothache, Exudative pharyngitis Condition: Good Instructions: ED Tooth Pain, ED Strep Pharyngitis Poss Prescriptions: Amoxicillin 500 mg PO BID #19 capsule HYDROcod/ACETAM 5/325 [[place] 5/325] 1 - 2 ea PO Q6H PRN #15 tablet PRN Reason: Pain Discharge Date/Time: 03/12/19 05:55
[2019-03-12 05:21] VITALS: BP 150/90
[2019-03-12] MEDS ORDERED: AMOXICILLIN 250 MG CAPSULE PO STA (05:39)
[2019-03-12] MEDS ORDERED: HYDROcod/ACETAM 5/325 MG TABLET PO STA (05:39)
== END 2019-03-12 05:55 | disposition home or self-care (01) ==
LOC: ED 03:22
DX: K08.89 Other specified disorders of teeth and supporting structures (principal); J02.9 Acute pharyngitis, unspecified; F17.200 Nicotine dependence, unspecified, uncomplicated
CPT/HCPCS: 99282; 99283; A9270

== ENCOUNTER 2019-08-04 09:14 | Emergency (ER) | payer MEDICAID, OTHER ==
[2019-08-04 09:21] VITALS: BP 148/87
[2019-08-04] MEDS ORDERED: AMOXICILLIN 250 MG CAPSULE PO STA (10:41)
--- NOTE | 2019-08-04 10:48 | ED Physician Documentation ---
History of Present Illness - Stated complaint Stated Complaint: MOUTH PAIN - Chief complaint Chief Complaint: Heent - History obtained from History obtained from: Patient - Additonal information Additional information: Patient comes emergency department complaining of left-sided dental pain, though he cannot tell whether it is mandibular or maxillary. He states his mouth feels swollen inside, but he has not noticed really any facial swelling. He states it radiates into his ear. He states he knows he has some teeth that are not in good condition on the left side, but has not noticed any new breakage or drainage in particular. No fevers or chills. No other complaints at this time. Review of Systems Ten Systems: 10 systems reviewed and negative Constitutional: reports: Reviewed and negative Eyes: reports: Reviewed and negative Ears: reports: Reviewed and negative Nose: reports: Reviewed and negative Throat: reports: Dental pain / toothache Cardiac: reports: Reviewed and negative Respiratory: reports: Reviewed and negative GI: reports: Reviewed and negative : reports: Reviewed and negative Skin: reports: Reviewed and negative Musculoskeletal: reports: Reviewed and negative Neurologic: reports: Reviewed and negative Psychiatric: reports: Reviewed and negative Endocrine: reports: Reviewed and negative Immunocompromised: reports: Reviewed and negative PD PAST MEDICAL HISTORY - Past Medical History Past Medical History: Yes Cardiovascular: None Respiratory: COPD Neuro: None Endocrine/Autoimmune: None GI: None : None HEENT: None Psych: Depression, Bipolar disorder Musculoskeletal: None Derm: None - Past Surgical History Past Surgical History: No - Present Medications Home Medications: Ambulatory Orders Medication Instructions Recorded Confirmed QUEtiapine [SEROquel] 100 mg PO DAILY 08/07/15 03/12/19 QUEtiapine [SEROquel] 200 mg PO QPM 07/04/18 03/12/19 Amoxicillin 500 mg PO BID #19 capsule 03/12/19 HYDROcod/ACETAM 5/325 [[place] 5/325] 1 - 2 ea PO Q6H PRN #15 tablet 03/12/19 Amoxicillin 500 mg PO TID 7 Days #21 capsule 08/04/19 Hydrocodone/Acetaminophen 1 - 2 each PO Q6H PRN #14 tablet 08/04/19 [Hydrocodon-Acetaminophen 5-325] - Allergies Allergies/Adverse Reactions: Allergies Allergy/AdvReac Type Severity Reaction Status Date / Time No Known Drug Allergies Allergy Verified 08/04/19 09:21 - Social History Does the pt smoke?: Yes Smoking Status: Current every day smoker Does the pt drink ETOH?: No Does the pt have substance abuse?: No - Immunizations Immunizations are current?: Yes - POLST Patient has POLST: No PD ED PE NORMAL - Vitals Vital signs reviewed: Yes - General General: Alert and oriented X 3, No acute distress - HEENT HEENT: Atraumatic, PERRL, EOMI, Moist mucous membranes, Pharynx benign, Other (Patient has moderate tenderness over his left maxillary buccal gingiva with mild edema. No drainage. No fluctuance. No buccal induration.) - Neck Neck: Supple, no meningeal sign - Respiratory Respiratory: No respiratory distress - Derm Derm: Warm and dry - Extremities Extremities: No deformity - Neuro Neuro: Alert and oriented X 3 - Psych Psych: Normal mood, Normal affect Results - Vitals Vitals: Oxygen O2 Source Room air PD MEDICAL DECISION MAKING - ED course Complexity details: reviewed old records, considered differential, d/w patient ED course: Patient was started on antibiotics. I have advised him to follow-up with his dentist as soon as possible for definitive management of his dental issues Departure - Departure Disposition: 01 Home, Self Care Clinical Impression: Pain, dental Condition: Stable Instructions: ED Tooth Pain Prescriptions: Amoxicillin 500 mg PO TID 7 Days #21 capsule Hydrocodone/Acetaminophen [Hydrocodon-Acetaminophen 5-325] 1 - 2 each PO Q6H PRN #14 tablet PRN Reason: pain Comments: [facility]: [phone] Discharge Date/Time: 08/04/19 10:55
== END 2019-08-04 10:55 | disposition home or self-care (01) ==
LOC: ED 09:14
DX: K08.89 Other specified disorders of teeth and supporting structures (principal); F17.200 Nicotine dependence, unspecified, uncomplicated
CPT/HCPCS: 99282; 99284; A9270

== ENCOUNTER 2019-09-04 13:14 | Emergency (ER) | payer MEDICAID ==
[2019-09-04 13:21] VITALS: BP 163/81
[2019-09-04] MEDS ORDERED: cefTRIAXone 1 GM VIAL IM STA (13:36)
[2019-09-04] MEDS ORDERED: LIDOCAINE 1% 2 ML VIAL MC ONE (13:36)
[2019-09-04] MEDS ORDERED: LIDOCAINE 1% 2 ML VIAL ONE (13:44)
--- NOTE | 2019-09-04 13:58 | ED Physician Documentation ---
History of Present Illness - Stated complaint Stated Complaint: TOOTH PX - Chief complaint Chief Complaint: Heent - History obtained from History obtained from: Patient - History of Present Illness Timing: How many days ago (several) Pain level max: 9 Pain level now: 9 - Additonal information Additional information: 34-year-old male presents the emergency department after being seen here a few days ago for right-sided dental pain. He is currently on clindamycin. The pain is now on the left side. No fevers. No difficulty with speech or swallowing. Worse with eating. Nothing makes it better. Review of Systems Constitutional: denies: Fever, Chills GI: denies: Vomiting, Diarrhea Skin: denies: Rash Musculoskeletal: denies: Neck pain, Back pain Neurologic: denies: Headache PD PAST MEDICAL HISTORY - Past Medical History Cardiovascular: None Respiratory: COPD Neuro: None Endocrine/Autoimmune: None GI: None : None HEENT: None Psych: Depression, Bipolar disorder Musculoskeletal: None Derm: None - Past Surgical History Past Surgical History: No - Present Medications Home Medications: Ambulatory Orders Medication Instructions Recorded Confirmed QUEtiapine [SEROquel] 100 mg PO DAILY 08/07/15 03/12/19 QUEtiapine [SEROquel] 200 mg PO QPM 07/04/18 03/12/19 Amoxicillin 500 mg PO BID #19 capsule 03/12/19 HYDROcod/ACETAM 5/325 [[place] 5/325] 1 - 2 ea PO Q6H PRN #15 tablet 03/12/19 Amoxicillin 500 mg PO TID 7 Days #21 capsule 08/04/19 Hydrocodone/Acetaminophen 1 - 2 each PO Q6H PRN #14 tablet 08/04/19 [Hydrocodon-Acetaminophen 5-325] Clindamycin HCl [Clindamycin 300MG 300 mg PO Q6H #40 capsule 08/31/19 CAP] Oxycodone HCl/Acetaminophen 1 - 2 each PO Q6H PRN #14 tablet 08/31/19 [Percocet 5-325 mg Tablet] Cephalexin [Keflex] 500 mg PO Q6H #40 capsule 09/04/19 - Allergies Allergies/Adverse Reactions: Allergies Allergy/AdvReac Type Severity Reaction Status Date / Time No Known Drug Allergies Allergy Verified 08/31/19 14:53 - Social History Does the pt smoke?: Yes Smoking Status: Current every day smoker Does the pt drink ETOH?: No Does the pt have substance abuse?: No - Immunizations Immunizations are current?: Yes - POLST Patient has POLST: No PD ED PE NORMAL - Vitals Vital signs reviewed: Yes - General General: Alert and oriented X 3, No acute distress, Well developed/nourished - HEENT HEENT: PERRL, Moist mucous membranes, Other (Poor dentition throughout. No gingival swelling. No abscess. Normal phonation. No trismus.) - Neck Neck: Supple, no meningeal sign - Derm Derm: Warm and dry - Neuro Neuro: Alert and oriented X 3 - Psych Psych: Normal mood, Normal affect Results - Vitals Vitals: Vital Signs - 24 hr 09/04/19 13:20 Temperature 37 C Heart Rate 96 Respiratory 16 Rate Blood Pressure 163/81 H O2 Saturation 99 Oxygen O2 Source Room air PD MEDICAL DECISION MAKING - ED course Complexity details: considered differential, d/w patient ED course: Patient with continued dental pain from multiple dental caries. Given Rocephin IM. Will change to Keflex. We will have him follow-up with dentistry this week for further care. Patient counseled regarding signs and symptoms for which I believe and urgent re-evaluation would be necessary. Patient with good understanding of and agreement to plan and is comfortable going home at this time This document was made in part using voice recognition software. While efforts are made to proofread this document, sound alike and grammatical errors may occur. Departure - Departure Disposition: 01 Home, Self Care Clinical Impression: Pain, dental, Dental caries Condition: Good Instructions: ED Tooth Pain Follow-Up: your,doctor in 1 week [Other] Prescriptions: Cephalexin [Keflex] 500 mg PO Q6H #40 capsule Comments: Return if you worsen. Follow up with your dentist this week.
== END 2019-09-04 14:22 | disposition home or self-care (01) ==
LOC: ED 13:14
DX: K02.9 Dental caries, unspecified (principal); J44.9 Chronic obstructive pulmonary disease, unspecified; F17.200 Nicotine dependence, unspecified, uncomplicated
CPT/HCPCS: 96372; 99283; 99284

== ENCOUNTER 2019-12-22 14:28 | Emergency (ER) | payer MEDICAID ==
[2019-12-22] MEDS ORDERED: LIDOCAINE-MPF 2% 5 ML VIAL SUBQ STA (14:39)
--- NOTE | 2019-12-22 15:07 | ED Physician Documentation ---
PD HPI UPPER EXT INJURY - Stated complaint Stated Complaint: LT FINGER LAC - Chief complaint Chief Complaint: Laceration - History obtained from History obtained from: Patient - History of Present Illness Location: Left, Finger (index) Type of injury: Laceration Where injury occurred: Home Timing - onset: Today Timing - duration: Minutes Timing - details: Abrupt onset, Still present Improved by: Rest, Immobilization Worsened by: Moving, Palpating Associated symptoms: No: Weakness, Numbness, Tingling Contributing factors: No: Anticoagulated Similar symptoms before: Diagnosis (laceration) Recently seen: Not recently seen - Additonal information Additional information: 34-year-old male was using a bread knife to cut some bread to make pastrami sandwich today when he lacerated the dorsum of the left index finger. He is able to control bleeding with direct pressure and comes in now for suturing. Review of Systems Constitutional: denies: Fever Nose: denies: Congestion Throat: denies: Sore throat Respiratory: denies: Dyspnea, Cough GI: denies: Vomiting PD PAST MEDICAL HISTORY - Past Medical History Cardiovascular: None Respiratory: COPD Neuro: None Endocrine/Autoimmune: None GI: None : None HEENT: None Psych: Depression, Bipolar disorder Musculoskeletal: None Derm: None - Past Surgical History Past Surgical History: No - Present Medications Home Medications: Ambulatory Orders Medication Instructions Recorded Confirmed QUEtiapine [SEROquel] 100 mg PO DAILY 08/07/15 03/12/19 QUEtiapine [SEROquel] 200 mg PO QPM 07/04/18 03/12/19 Amoxicillin 500 mg PO BID #19 capsule 03/12/19 HYDROcod/ACETAM 5/325 [[place] 5/325] 1 - 2 ea PO Q6H PRN #15 tablet 03/12/19 Amoxicillin 500 mg PO TID 7 Days #21 capsule 08/04/19 Hydrocodone/Acetaminophen 1 - 2 each PO Q6H PRN #14 tablet 08/04/19 [Hydrocodon-Acetaminophen 5-325] Clindamycin HCl [Clindamycin 300MG 300 mg PO Q6H #40 capsule 08/31/19 CAP] Oxycodone HCl/Acetaminophen 1 - 2 each PO Q6H PRN #14 tablet 08/31/19 [Percocet 5-325 mg Tablet] Cephalexin [Keflex] 500 mg PO Q6H #40 capsule 09/04/19 - Allergies Allergies/Adverse Reactions: Allergies Allergy/AdvReac Type Severity Reaction Status Date / Time No Known Drug Allergies Allergy Verified 12/22/19 14:34 - Social History Does the pt smoke?: Yes Smoking Status: Current every day smoker Does the pt drink ETOH?: No Does the pt have substance abuse?: No - Immunizations Immunizations are current?: Yes - POLST Patient has POLST: No PD ED PE NORMAL - Vitals Vital signs reviewed: Yes (Hypertensive) - General General: Alert and oriented X 3, No acute distress, Well developed/nourished - HEENT HEENT: Atraumatic, PERRL, EOMI - Respiratory Respiratory: No respiratory distress - Derm Derm: Normal color, Warm and dry, No rash - Extremities Extremities: No deformity, No edema, Other (There is a 3-1/2 cm laceration over the left proximal phalange of the index finger. The laceration extends over the dorsal surface and extends over the flexor surface of the PIP jointThere is no involvement of deeper structures and the distal neurovascular components are intact) - Neuro Neuro: Alert and oriented X 3, lead clinical research coordinator 2-12 intact, No motor deficit, No sensory deficit, Normal speech Eye Opening: Spontaneous Motor: Obeys Commands Verbal: Oriented GCS Score: 15 - Psych Psych: Normal mood, Normal affect Results - Vitals Vitals: Vital Signs - 24 hr 12/22/19 12/22/19 14:32 15:29 Temperature 36.9 C Heart Rate 94 77 Respiratory 17 17 Rate Blood Pressure 161/103 H 146/92 H O2 Saturation 96 100 Oxygen O2 Source Room air Procedures - Laceration (location) left index Length in cm: 3.5 Wound type: Curved, Flap, Clean Neurovascular status: Sensory intact, Motor intact, Vascular intact Tendon involvement: Tendon intact Anesthesia: Lidocaine 2% Wound Preparation: Hibiclens, Irrigated copiously NS, Wound explored, To the base Skin layer closure: Nylon, Interrupted, Size #-0 - enter number (4-0) Other: Patient tolerated well, No complications, Neurovascular intact, Dressing applied, Tetanus UTD Complexity: Simple PD MEDICAL DECISION MAKING - ED course Complexity details: considered differential, d/w patient ED course: 34-year-old male with a laceration to the left extremity was sutured tolerates this well. Departure - Departure Disposition: 01 Home, Self Care Clinical Impression: Laceration of left index finger Qualifiers: Encounter type: initial encounter Damage to nail status: without damage Foreign body presence: without foreign body Qualified Code(s): S61.211A - Laceration wi thout foreign body of left index finger without damage to nail, initial encounter Condition: Stable Instructions: ED Laceration Hand Follow-Up: [facility] [Provider Group] Comments: Sutures will need to be removed in 10 to 14 days Discharge Date/Time: 12/22/19 15:29
[2019-12-22 15:30] VITALS: BP 146/92
== END 2019-12-22 15:29 | disposition home or self-care (01) ==
LOC: ED 14:28
DX: S61.211A Laceration without foreign body of left index finger without damage to nail, initial encounter (principal); W26.0XXA Contact with knife, initial encounter; Y93.G1 Activity, food preparation and clean up; Y92.009 Unspecified place in unspecified non-institutional (private) residence as the place of occurrence of the external cause; F17.200 Nicotine dependence, unspecified, uncomplicated
CPT/HCPCS: 12002; 99281; 99282

== ENCOUNTER 2020-01-19 13:37 | Emergency (ER) | payer MEDICAID ==
[2020-01-19 14:07] VITALS: BP 176/106
--- NOTE | 2020-01-19 14:50 | ED Physician Documentation ---
History of Present Illness - Stated complaint Stated Complaint: TOOTH PX - Chief complaint Chief Complaint: Heent - History obtained from History obtained from: Patient - Additonal information Additional information: 35-year-old gentleman has had a lot of trouble with his teeth. He has a tooth ache from a right maxillary molar for 4 days. No facial swelling or fevers. Review of Systems Constitutional: reports: Fever Throat: reports: Dental pain / toothache. denies: Oral lesions / sores, Sore throat Cardiac: denies: Chest pain / pressure, Palpitations PD PAST MEDICAL HISTORY - Past Medical History Past Medical History: Yes Cardiovascular: None Respiratory: COPD Neuro: None Endocrine/Autoimmune: None GI: None : None HEENT: None Psych: Depression, Bipolar disorder Musculoskeletal: None Derm: None - Past Surgical History Past Surgical History: No - Present Medications Home Medications: Ambulatory Orders Medication Instructions Recorded Confirmed Meloxicam [Mobic] 7.5 mg PO BID PRN #20 tablet 01/19/20 Penicillin V Potassium 500 mg PO Q6HR #40 tablet 01/19/20 - Allergies Allergies/Adverse Reactions: Allergies Allergy/AdvReac Type Severity Reaction Status Date / Time No Known Drug Allergies Allergy Verified 01/19/20 14:06 - Social History Does the pt smoke?: Yes Smoking Status: Current every day smoker Does the pt drink ETOH?: No Does the pt have substance abuse?: No - Immunizations Immunizations are current?: Yes - POLST Patient has POLST: No PD ED PE NORMAL - Vitals Vital signs reviewed: Yes - General General: Alert and oriented X 3, No acute distress - HEENT HEENT: Other (Severe dental decay with multiple teeth missing. There is a large cavity in the last remaining molar on the right maxilla without facial swelling or trismus.) - Neuro Neuro: Alert and oriented X 3 Results - Vitals Vitals: Vital Signs - 24 hr 01/19/20 14:04 Temperature 36.7 C Heart Rate 97 Respiratory 18 Rate Blood Pressure 176/106 H O2 Saturation 97 Oxygen O2 Source Room air Departure - Departure Disposition: 01 Home, Self Care Clinical Impression: Toothache Condition: Good Record reviewed to determine appropriate education?: Yes Instructions: ED Tooth Pain Prescriptions: Penicillin V Potassium 500 mg PO Q6HR #40 tablet Meloxicam [Mobic] 7.5 mg PO BID PRN #20 tablet PRN Reason: Pain Comments: Follow-up with your dentist as scheduled, return for new or worsening symptoms.
--- NOTE | 2020-01-19 14:50 | ED Physician Documentation ---
History of Present Illness - Stated complaint Stated Complaint: TOOTH PX - Chief complaint Chief Complaint: Heent - History obtained from History obtained from: Patient (4 days right max molar pain. No fevers/swelling) Review of Systems Constitutional: denies: Fever, Chills Eyes: reports: Reviewed and negative Ears: reports: Reviewed and negative Throat: reports: Dental pain / toothache. denies: Oral lesions / sores PD PAST MEDICAL HISTORY - Past Medical History Past Medical History: Yes Cardiovascular: None Respiratory: COPD Neuro: None Endocrine/Autoimmune: None GI: None : None HEENT: None Psych: Depression, Bipolar disorder Musculoskeletal: None Derm: None - Past Surgical History Past Surgical History: No - Present Medications Home Medications: Ambulatory Orders Medication Instructions Recorded Confirmed Meloxicam [Mobic] 7.5 mg PO BID PRN #20 tablet 01/19/20 Penicillin V Potassium 500 mg PO Q6HR #40 tablet 01/19/20 - Allergies Allergies/Adverse Reactions: Allergies Allergy/AdvReac Type Severity Reaction Status Date / Time No Known Drug Allergies Allergy Verified 01/19/20 14:06 - Social History Does the pt smoke?: Yes Smoking Status: Current every day smoker Does the pt drink ETOH?: No Does the pt have substance abuse?: No - Immunizations Immunizations are current?: Yes - POLST Patient has POLST: No PD ED PE NORMAL - Vitals Vital signs reviewed: Yes - General General: Alert and oriented X 3, No acute distress - HEENT HEENT: Other (Mult caries. No facial swelling, trismus) - Neck Neck: Supple, no meningeal sign, No bony TTP - Neuro Neuro: Alert and oriented X 3, Normal speech Results - Vitals Vitals: Vital Signs - 24 hr 01/19/20 14:04 Temperature 36.7 C Heart Rate 97 Respiratory 18 Rate Blood Pressure 176/106 H O2 Saturation 97 Oxygen O2 Source Room air PD MEDICAL DECISION MAKING - ED course ED course: duplicate chart error Departure - Departure Disposition: 01 Home, Self Care Clinical Impression: Toothache Condition: Good Instructions: ED Tooth Pain Prescriptions: Penicillin V Potassium 500 mg PO Q6HR #40 tablet Meloxicam [Mobic] 7.5 mg PO BID PRN #20 tablet PRN Reason: Pain Comments: Follow-up with your dentist as scheduled, return for new or worsening symptoms. Discharge Date/Time: 01/19/20 14:56
== END 2020-01-19 14:56 | disposition home or self-care (01) ==
LOC: ED 13:37
DX: K08.89 Other specified disorders of teeth and supporting structures (principal); F17.200 Nicotine dependence, unspecified, uncomplicated; Z79.899 Other long term (current) drug therapy
CPT/HCPCS: 99282; 99283

== ENCOUNTER 2021-01-26 08:00 | Outpatient (CLI) | payer MEDICAID ==
[2021-01-26 17:54] LABS: BASOPHILS % (AUTO) 0.5 %; EOSINOPHILS # (AUTO) 0.2 10^3/uL (0.0-0.7); EOSINOPHILS % (AUTO) 2.7 %; HCT - HEMATOCRIT 44.3 % (42.0-52.0); HGB - HEMOGLOBIN 14.7 g/dL (14.0-18.0); LYMPHOCYTES # (AUTO) 1.4 10^3/uL (1.5-3.5); LYMPHOCYTES % (AUTO) 25.6 %; MEAN CORPUSCULAR HEMOGLOBIN 30.3 pg (27.0-31.0); MEAN CORPUSCULAR HGB CONC 33.2 g/dL (32.0-36.0); MEAN CORPUSCULAR VOLUME 91.3 fL (80.0-94.0); MONOCYTES # (AUTO) 0.5 10^3/uL (0.0-1.0); MONOCYTES % (AUTO) 9.5 %; NEUTROPHILS # (AUTO) 3.3 10^3/uL (1.5-6.6); NEUTROPHILS % (AUTO) 60.8 %; PLT - PLATELET COUNT 305 10^3/uL (130-450); RED BLOOD COUNT 4.85 10^6/uL (4.70-6.10); WHITE BLOOD COUNT 5.5 x10^3/uL (4.8-10.8)
[2021-01-26 18:41] LABS: CREATININE,URINE 156.3 mg/dL; MICROALBUM/CREATININE RATIO,UR 3.8 ug/mg (<30.0); MICROALBUMIN,URINE 0.6 mg/dL (0-300.0)
[2021-01-26 18:43] LABS: ALBUMIN 4.6 g/dL (3.2-5.5); ALBUMIN/GLOBULIN RATIO 1.4 (1.0-2.2); ALKALINE PHOSPHATASE 60 IU/L (42-121); ALT ALANINE AMINOTRANSFERASE 19 IU/L (10-60); AST ASPARTATE AMINOTRANSFERASE 16 IU/L (10-42); BILIRUBIN,TOTAL 0.6 mg/dL (0.2-1.0); BUN - BLOOD UREA NITROGEN 15 mg/dL (6-20); CHOL/HDL RATIO 3.4 (<5.0); CHOLESTEROL 215 mg/dL; CREATININE 0.6 mg/dL (0.6-1.2); GFR - MDRD 152 (>89); HDL CHOLESTEROL 63 mg/dL; LDL CHOLESTEROL,CALCULATED 132 mg/dL; LDL/HDL RATIO 2.1 (<3.6); TOTAL PROTEIN 7.8 g/dL (6.7-8.2); TRIGLYCERIDES 100 mg/dL; VLDL CHOLESTEROL 20 mg/dL
[2021-01-26 18:44] LABS: THYROID STIMULATING HORMONE 1.18 uIU/mL (0.34-5.60)
[2021-01-26 19:02] LABS: CALCIUM 9.8 mg/dL (8.5-10.3); CARBON DIOXIDE - CO2 26 mmol/L (21-32); CHLORIDE 101 mmol/L (101-111); GLUCOSE 84 mg/dL (70-100); POTASSIUM 4.1 mmol/L (3.5-5.0); SODIUM 137 mmol/L (135-145)
[2021-01-26 20:42] LABS: ESTIMATED AVERAGE GLUCOSE 105 mg/dL (70-100); HEMOGLOBIN A1c% 5.3 % (4.27-6.07)
== END 2021-01-26 23:59 | disposition home or self-care (01) ==
LOC: LAB.WCP 08:00
PROVIDERS: ATTEND Nurse Practitioner
DX: R53.83 Other fatigue (principal); Z13.220 Encounter for screening for lipoid disorders; E66.9 Obesity, unspecified
CPT/HCPCS: 36415; 80053; 80061; 82043; 82570; 83036; 83721; 84443; 85025

== ENCOUNTER 2021-02-06 08:07 | Outpatient (CLI) | payer MEDICAID | END 2021-02-06 08:08 | disposition home or self-care (01) | LOC: LAB 08:07 | PROVIDERS: ATTEND Nurse Practitioner | DX: Z53.9 Procedure and treatment not carried out, unspecified reason (principal) | CPT/HCPCS: 82043; 82570 ==

== ENCOUNTER 2021-02-07 08:00 | Outpatient (CLI) | payer MEDICAID ==
[2021-02-07 18:39] LABS: CREATININE,URINE 121.7 mg/dL; MICROALBUM/CREATININE RATIO,UR 6.6 ug/mg (<30.0); MICROALBUMIN,URINE 0.8 mg/dL (0-300.0)
== END 2021-02-07 23:59 | disposition home or self-care (01) ==
LOC: LAB.WCP 08:00
PROVIDERS: ATTEND Nurse Practitioner
DX: E66.9 Obesity, unspecified (principal)
CPT/HCPCS: 82043; 82570

== ENCOUNTER 2021-03-24 17:49 | Outpatient (CLI) | payer MEDICAID | END 2021-03-24 17:50 | disposition critical access hospital (66) | LOC: EMS 17:49 | DX: T43.592A Poisoning by other antipsychotics and neuroleptics, intentional self-harm, initial encounter (principal) | CPT/HCPCS: A0425; A0429; A0999 ==

== ENCOUNTER 2021-03-24 17:58 | Inpatient (IN) | payer MEDICAID ==
[2021-03-24] MEDS ORDERED: CHARCOAL/SORBITOL 50 GM/240 ML PO STA (18:04)
--- NOTE | 2021-03-24 18:13 | ED Physician Documentation ---
History of Present Illness - Stated complaint Stated Complaint: OD - Chief complaint Chief Complaint: Neuro - History obtained from History obtained from: EMS - History of Present Illness Timing: Today Pain level max: 0 Pain level now: 0 - Additonal information Additional information: 36-year-old male brought in by EMS after reportedly taking 50 to 100 tablets of Seroquel. They were a mix of 50 mg and 100 mg tablets. This was taken about 45 minutes prior to arrival. Per EMS the patient was ambulatory and verbal on scene. Became unresponsive en route. Review of Systems Unable to obtain: Unresponsive PD PAST MEDICAL HISTORY - Past Medical History Cardiovascular: None Respiratory: COPD Neuro: None Endocrine/Autoimmune: None GI: None : None HEENT: None Psych: Depression, Bipolar disorder Musculoskeletal: None Derm: None - Past Surgical History Past Surgical History: No - Present Medications Home Medications: Ambulatory Orders Medication Instructions Recorded Confirmed Meloxicam [Mobic] 7.5 mg PO BID PRN #20 tablet 01/19/20 Penicillin V Potassium 500 mg PO Q6HR #40 tablet 01/19/20 - Allergies Allergies/Adverse Reactions: Allergies Allergy/AdvReac Type Severity Reaction Status Date / Time No Known Drug Allergies Allergy Verified 03/24/21 18:03 - Social History Does the pt smoke?: Yes Smoking Status: Current every day smoker Does the pt drink ETOH?: No Does the pt have substance abuse?: No - Immunizations Immunizations are current?: Yes - POLST Patient has POLST: No PD ED PE NORMAL - Vitals Vital signs reviewed: Yes - General General: No acute distress, Other (Drowsy, not arousable. Withdraws from pain) - HEENT HEENT: Moist mucous membranes, Other (Pinpoint pupils bilaterally.) - Neck Neck: Supple, no meningeal sign - Cardiac Cardiac: Strong equal pulses, Other (Tachycardic) - Respiratory Respiratory: No respiratory distress, Clear bilaterally - Abdomen Abdomen: Soft, Non tender, Non distended - Derm Derm: Warm and dry - Extremities Extremities: No calf tenderness / cord - Neuro Eye Opening: None Motor: Withdraws to Pain Verbal: None GCS Score: 6 Results - Vitals Vitals: Vital Signs - 24 hr 03/24/21 03/24/21 03/24/21 18:03 18:05 18:35 Temperature 37.0 C Heart Rate 124 H 135 H 111 H Respiratory 10 L 12 17 Rate Blood Pressure 81/54 L 114/63 85/54 L O2 Saturation 93 92 96 03/24/21 03/24/21 18:54 19:05 Temperature Heart Rate 120 H 109 H Respiratory 16 Rate Blood Pressure 96/52 L O2 Saturation 94 Oxygen O2 Source Mechanical ventilator - EKG (time done) 1802 Rate: Rate (enter#) (123) Rhythm: Sinus tachycardia Hammond: Normal Intervals: Normal IA QRS: Normal Ischemia: Other (borderline QT prolongation) - Labs Labs: Laboratory Tests 03/24/21 03/24/21 03/24/21 18:11 18:11 18:11 WBC 7.6 RBC 4.20 L Hgb 12.8 L Hct 36.5 L MCV 86.9 MCH 30.5 MCHC 35.1 RDW 11.9 L Plt Count 297 MPV 9.6 Neut # (Auto) 5.4 Lymph # (Auto) 1.4 L [place] # (Auto) 0.7 Eos # (Auto) 0.0 Baso # (Auto) 0.0 Absolute Nucleated RBC 0.00 Nucleated RBC % 0.0 Sodium 136 Potassium 2.5 L* Chloride 102 Carbon Dioxide 22 Anion Gap 12.0 BUN 11 Creatinine 0.8 Estimated GFR (MDRD) 109 Glucose 134 H Calcium 8.7 Phosphorus Magnesium Total Bilirubin 1.0 AST 17 ALT 20 Alkaline Phosphatase 49 B-Natriuretic Peptide Total Protein 6.7 Albumin 4.0 Globulin 2.7 Albumin/Globulin Ratio 1.5 Lipase 17 L TSH 1.33 Urine Color Urine Clarity Urine pH Ur Specific [place] Urine Protein Urine Glucose (UA) Urine Ketones Urine Occult Blood Urine Nitrite Urine Bilirubin Urine Urobilinogen Ur Leukocyte Esterase Ur Microscopic Review Urine Culture Comments Nasal Adenovirus (PCR) Nasal B. parapertussis DNA (PCR) Nasal Coronavir 229E PCR Nasal Coronavir HKU1 PCR Nasal Coronavir NL63 PCR Nasal Coronavir OC43 PCR Nasal Enterovir/Rhinovir PCR Nasal Influenza B PCR Nasal Influenza A PCR Nasal Parainfluen 1 PCR Nasal Parainfluen 2 PCR Nasal Parainfluen 3 PCR Nasal Parainfluen 4 PCR Nasal RSV (PCR) Nasal B.pertussis DNA PCR Nasal C.pneumoniae (PCR) Khurram Human Metapneumo PCR Nasal M.pneumoniae (PCR) Nasal SARS-CoV-2 (PCR) Salicylates < 6.0 Urine Opiates Screen Ur Oxycodone Screen Urine Methadone Screen Ur Propoxyphene Screen Acetaminophen < 10 L Ur Barbiturates Screen Ur Tricyclics Screen Ur Phencyclidine Scrn Ur Amphetamine Screen U Methamphetamines Scrn U Benzodiazepines Scrn Urine Cocaine Screen U Cannabinoids Screen Ethyl Alcohol < 5.0 03/24/21 03/24/21 03/24/21 18:11 18:27 18:38 WBC RBC Hgb Hct MCV MCH MCHC RDW Plt Count MPV Neut # (Auto) Lymph # (Auto) [place] # (Auto) Eos # (Auto) Baso # (Auto) Absolute Nucleated RBC Nucleated RBC % Sodium Potassium Chloride Carbon Dioxide Anion Gap BUN Creatinine Estimated GFR (MDRD) Glucose Calcium Phosphorus 3.3 Magnesium 1.8 Total Bilirubin AST ALT Alkaline Phosphatase B-Natriuretic Peptide 13 Total Protein Albumin Globulin Albumin/Globulin Ratio Lipase TSH Urine Color YELLOW Urine Clarity CLEAR Urine pH 6.0 Ur Specific [place] >=1.030 H Urine Protein TRACE Urine Glucose (UA) NEGATIVE Urine Ketones NEGATIVE Urine Occult Blood NEGATIVE Urine Nitrite NEGATIVE Urine Bilirubin NEGATIVE Urine Urobilinogen 0.2 (NORMAL) Ur Leukocyte Esterase NEGATIVE Ur Microscopic Review NOT INDICATED Urine Culture Comments NOT INDICATED Nasal Adenovirus (PCR) Nasal B. parapertussis DNA (PCR) Nasal Coronavir 229E PCR Nasal Coronavir HKU1 PCR Nasal Coronavir NL63 PCR Nasal Coronavir OC43 PCR Nasal Enterovir/Rhinovir PCR Nasal Influenza B PCR Nasal Influenza A PCR Nasal Parainfluen 1 PCR Nasal Parainfluen 2 PCR Nasal Parainfluen 3 PCR Nasal Parainfluen 4 PCR Nasal RSV (PCR) Nasal B.pertussis DNA PCR Nasal C.pneumoniae (PCR) Khurram Human Metapneumo PCR Nasal M.pneumoniae (PCR) Nasal SARS-CoV-2 (PCR) Salicylates Urine Opiates Screen NEGATIVE Ur Oxycodone Screen NEGATIVE Urine Methadone Screen NEGATIVE Ur Propoxyphene Screen NEGATIVE Acetaminophen Ur Barbiturates Screen NEGATIVE Ur Tricyclics Screen POSITIVE H Ur Phencyclidine Scrn NEGATIVE Ur Amphetamine Screen POSITIVE H U Methamphetamines Scrn POSITIVE H U Benzodiazepines Scrn NEGATIVE Urine Cocaine Screen NEGATIVE U Cannabinoids Screen NEGATIVE Ethyl Alcohol 03/24/21 18:40 WBC RBC Hgb Hct MCV MCH MCHC RDW Plt Count MPV Neut # (Auto) Lymph # (Auto) [place] # (Auto) Eos # (Auto) Baso # (Auto) Absolute Nucleated RBC Nucleated RBC % Sodium Potassium Chloride Carbon Dioxide Anion Gap BUN Creatinine Estimated GFR (MDRD) Glucose Calcium Phosphorus Magnesium Total Bilirubin AST ALT Alkaline Phosphatase B-Natriuretic Peptide Total Protein Albumin Globulin Albumin/Globulin Ratio Lipase TSH Urine Color Urine Clarity Urine pH Ur Specific [place] Urine Protein Urine Glucose (UA) Urine Ketones Urine Occult Blood Urine Nitrite Urine Bilirubin Urine Urobilinogen Ur Leukocyte Esterase Ur Microscopic Review Urine Culture Comments Nasal Adenovirus (PCR) NOT DETECTED Nasal B. parapertussis DNA (PCR) NOT DETECTED Nasal Coronavir 229E PCR NOT DETECTED Nasal Coronavir HKU1 PCR NOT DETECTED Nasal Coronavir NL63 PCR NOT DETECTED Nasal Coronavir OC43 PCR NOT DETECTED Nasal Enterovir/Rhinovir PCR NOT DETECTED Nasal Influenza B PCR NOT DETECTED Nasal Influenza A PCR NOT DETECTED Nasal Parainfluen 1 PCR NOT DETECTED Nasal Parainfluen 2 PCR NOT DETECTED Nasal Parainfluen 3 PCR NOT DETECTED Nasal Parainfluen 4 PCR NOT DETECTED Nasal RSV (PCR) NOT DETECTED Nasal B.pertussis DNA PCR NOT DETECTED Nasal C.pneumoniae (PCR) NOT DETECTED Khurram Human Metapneumo PCR NOT DETECTED Nasal M.pneumoniae (PCR) NOT DETECTED Nasal SARS-CoV-2 (PCR) NOT DETECTED Salicylates Urine Opiates Screen Ur Oxycodone Screen Urine Methadone Screen Ur Propoxyphene Screen Acetaminophen Ur Barbiturates Screen Ur Tricyclics Screen Ur Phencyclidine Scrn Ur Amphetamine Screen U Methamphetamines Scrn U Benzodiazepines Scrn Urine Cocaine Screen U Cannabinoids Screen Ethyl Alcohol - Rads (name of study) Chest for line placement Radiology: Final report received, EMP read contemporaneously, See rad report Procedures - Intubation Provider: Emergency physician Medications: Rocuronium Blade: Glidescope Tube: Size-enter number (8), Cuffed, Marked at teeth-enter cm (24) Route: Oral Confirmation: Direct visualization, Bilateral breath sounds, End tidal CO2, Pulse ox, Chest xray Complications: No compications PD MEDICAL DECISION MAKING - ED course Complexity details: reviewed old records, reviewed results, re-evaluated patient, considered differential, d/w sap bw consultant ED course: Patient is a 36-year-old male who presents after an intentional Seroquel overdose. He took between 50 and 100 tablets of Seroquel, 50 and 100 mg tablets. He became unresponsive en route to the emergency department with EMS. GCS of 6. Therefore patient was intubated for airway protection. No complications with intubation. NG tube was placed and pink liquid is removed with the NG tube. Escamilla catheter was placed. Placed on Precedex. We will admit the patient for further care. Discussed the case with Dr. Hirsch, hospitalist who accepts This document was made in part using voice recognition software. While efforts are made to proofread this document, sound alike and grammatical errors may occur. Patient will need to be monitored for QRS widening, arrhythmias, seizures and other complications. Potassium replacement was also begun in the emergency department where he was found to be hypokalemic IMPRESSION: Endotracheal tube in the lower trachea. Enteric tube coursing in the stomach. No central venous line demonstrated. Bilateral patchy airspace opacity. As could be due to multifocal pneumonia and/or fluid overload/CHF. - Critical Care Time(min): 50 Time Includes: Direct patient care, Review records, Reassess patient, Document care, Coordinate care, Medical consult Data interpretation: See progress note Procedures included in critical care time: See progress note Procedures excluded from critical care time: Intubation Departure - Departure Disposition: 66 [facility] DC/Xfer Clinical Impression: Hypokalemia Intentional overdose Qualifiers: Encounter type: initial encounter Qualified Code(s): T50.902A - Poisoning by unspecified drugs, medicaments and biological substances, intentional self-harm, initial encounter Respiratory failure Qualifiers: Chronicity: unspecified Respiratory failure complication: hypoxia Qualified Code(s): J96.91 - Respiratory failure, unspecified with hypoxia Hypotension Qualifiers: Hypotension type: unspecified hypotension type Qualified Code(s): I95.9 - Hypotension, unspecified Condition: Stable Discharge Date/Time: 03/24/21 20:44
[2021-03-24] MEDS ORDERED: DEXMEDETOMIDINE 400 MCG/100 ML 100 ML IV PRN ×2 (18:14→19:41)
[2021-03-24] MEDS ORDERED: ROCURONIUM 50 MG/5 ML VIAL IVP STA (18:14)
[2021-03-24] MEDS ORDERED: SODIUM CHLORIDE 0.9% 1,000 ML IV STA ×2 (18:15→18:32)
[2021-03-24 18:31] LABS: BASOPHILS % (AUTO) 0.5 %; EOSINOPHILS % (AUTO) 0.5 %; HCT - HEMATOCRIT 36.5 % (42.0-52.0); HGB - HEMOGLOBIN 12.8 g/dL (14.0-18.0); LYMPHOCYTES # (AUTO) 1.4 10^3/uL (1.5-3.5); LYMPHOCYTES % (AUTO) 18.2 %; MEAN CORPUSCULAR HEMOGLOBIN 30.5 pg (27.0-31.0); MEAN CORPUSCULAR HGB CONC 35.1 g/dL (32.0-36.0); MEAN CORPUSCULAR VOLUME 86.9 fL (80.0-94.0); MEAN PLATELET VOLUME 9.6 fL (7.4-11.4); MONOCYTES # (AUTO) 0.7 10^3/uL (0.0-1.0); MONOCYTES % (AUTO) 9.2 %; NEUTROPHILS # (AUTO) 5.4 10^3/uL (1.5-6.6); NEUTROPHILS % (AUTO) 71.3 %; PLT - PLATELET COUNT 297 10^3/uL (130-450); RED CELL DISTRIBUTION WIDTH 11.9 % (12.0-15.0); WHITE BLOOD COUNT 7.6 x10^3/uL (4.8-10.8)
[2021-03-24] MEDS ORDERED: CHARCOAL ACTIVATED 25 GM/120 ML BOTTLE PO STA (18:31)
[2021-03-24 18:48] LABS: MUDS CUTOFF CONCENTRATIONS CUTOFF CONC BELOW:
[2021-03-24 18:49] LABS: ACETAMINOPHEN < 10 ug/mL (10-30); ALBUMIN/GLOBULIN RATIO 1.5 (1.0-2.2); ALKALINE PHOSPHATASE 49 IU/L (42-121); ALT ALANINE AMINOTRANSFERASE 20 IU/L (10-60); AST ASPARTATE AMINOTRANSFERASE 17 IU/L (10-42); BUN - BLOOD UREA NITROGEN 11 mg/dL (6-20); CALCIUM 8.7 mg/dL (8.5-10.3); CARBON DIOXIDE - CO2 22 mmol/L (21-32); CHLORIDE 102 mmol/L (101-111); CREATININE 0.8 mg/dL (0.6-1.2); ETOH - ETHANOL < 5.0 mg/dL; GFR - MDRD 109 (>89); GLUCOSE 134 mg/dL (70-100); LIPASE 17 U/L (22-51); SALICYLATE < 6.0 mg/dL; SODIUM 136 mmol/L (135-145); TOTAL PROTEIN 6.7 g/dL (6.7-8.2)
[2021-03-24 18:49] LABS: BILIRUBIN,URINE NEGATIVE (NEGATIVE); GLUCOSE, URINE (UA) NEGATIVE (NEGATIVE); KETONES,URINE (UA) NEGATIVE (NEGATIVE); LEUKOCYTE ESTERASE, URINE NEGATIVE (NEGATIVE); NITRITE,URINE NEGATIVE (NEGATIVE); OCCULT BLOOD,URINE NEGATIVE (NEGATIVE); PROTEIN,URINE TRACE mg/dL (NEGATIVE); UROBILINOGEN,URINE 0.2 (NORMAL) E.U./dL (NORMAL)
[2021-03-24 18:50] LABS: CLARITY,URINE CLEAR (CLEAR)
[2021-03-24 18:51] LABS: POTASSIUM 2.5 mmol/L (3.5-5.0)
[2021-03-24] MEDS ORDERED: POTASSIUM CHLOR 10 MEQ/100 ML 10 MEQ/100 ML BAG IV STA (18:51)
[2021-03-24 19:05] LABS: THC CANNABINOID SCREEN, URINE NEGATIVE (NEGATIVE)
--- NOTE | 2021-03-24 19:05 | XRAY Report ---
PROCEDURE: Chest for Line Placement INDICATIONS: s/p intubation TECHNIQUE: One view of the chest was acquired. COMPARISON: CXR 04/16/2017. FINDINGS: Surgical changes and devices: Endotracheal tube in the lower trachea. Enteric tube coursing into the stomach. Central venous line is not seen. Lungs and pleura: No pleural effusions or pneumothorax. Bilateral patchy airspace opacity. Mediastinum: Mediastinal contours appear unchanged. Heart size is normal. Bones and chest wall: No suspicious bony lesions. Overlying soft tissues appear unremarkable. IMPRESSION: Endotracheal tube in the lower trachea. Enteric tube coursing in the stomach. No central venous line demonstrated. Bilateral patchy airspace opacity. As could be due to multifocal pneumonia and/or fluid overload/CHF. Reviewed by: Matthieu Ramirez MD on 03/24/2021 7:03 PM PST Approved by: Matthieu Ramirez MD on 03/24/2021 7:03 PM PST Station ID: [id number]
[2021-03-24 19:06] LABS: AMPHETAMINE SCREEN,URINE POSITIVE (NEGATIVE); BARBITURATE SCREEN,UR NEGATIVE (NEGATIVE); BENZODIAZEPINES SCREEN, URINE NEGATIVE (NEGATIVE); COCAINE SCREEN URINE NEGATIVE (NEGATIVE); METHADONE SCREEN, URINE NEGATIVE (NEGATIVE); METHAMPHETAMINES SCREEN, URINE POSITIVE (NEGATIVE); OPIATE SCREEN, URINE NEGATIVE (NEGATIVE); OXYCODONE SCREEN, URINE NEGATIVE (NEGATIVE); PROPOXYPHENE SCREEN, URINE NEGATIVE (NEGATIVE); TRICYCLIC ANTIDEPRESSANT,URINE POSITIVE (NEGATIVE)
[2021-03-24 19:14] LABS: MAGNESIUM 1.8 mg/dL (1.7-2.8); PHOSPHORUS 3.3 mg/dL (2.5-4.6)
--- NOTE | 2021-03-24 19:34 | HISTORY & PHYSICAL EXAMINATION ---
Chief Complaint - Chief Complaint Chief Complaint: intentional drug overdose History of Present Illness - Admitted From Admitted From:: [facility] ED - History Obtained From Records Reviewed: yes History obtained from: ED provider and patient's family Exam Limitations: sedated and intubated - History of Present Illness HPI Comment/Other: Patient is a 36-year-old obese male who presented to the ED after intentional ingestion of about 50 to 100 tablets of Seroquel. He was last seen normal around noon to 1 PM. Around 5:30 PM he knocked on his sister's door informing her that he had ingested the medication. EMS was called and he was brought to the ED. In the ED he was increasingly very somnolent. In order to protect his airway he was intubated and presented for admission for further management. At the time of exam he was intubated and sedated thus unable to provide history. This history was obtained from his mother and siblings. However the knowledge of his medical history is limited. His mother thinks he may have had a previous attempt of self-harm in the past but could not provide specifics. The patient lives on the same property as his mother and other siblings. History - Past Medical History Cardiovascular: reports: None Respiratory: reports: COPD Neuro: reports: None Endocrine/Autoimmune: reports: Other (Obesity) GI: reports: None : reports: None HEENT: reports: None Psych: reports: Depression, Bipolar disorder Musculoskeletal: reports: None Derm: reports: None MRSA Hx?: No Other Past Medical History: Methamphetamine abuse - Family & Social History Family History: Mother: Diabetes, Type 2 Family History Comment/Other: He leaves in his house with his girlfriend. This is situated on the same property as his mother and other siblings. He smokes at least half a pack of cigarettes daily. He consumes alcohol and uses methamphetamine and marijuana. - POLST Patient has POLST: No POLST Status: Full Code Meds/Allgy - Home Medications Home Medications: Ambulatory Orders Medication Instructions Recorded Confirmed Quetiapine Fumarate [Seroquel] 100 mg PO QPM 03/25/21 03/25/21 - Allergies Allergies/Adverse Reactions: Allergies Allergy/AdvReac Type Severity Reaction Status Date / Time No Known Drug Allergies Allergy Verified 03/24/21 18:03 Review of Systems - Other Findings Other Findings: A 12 point review of system is currently limited because the patient is sedated and intubated and unable to provide Prior Level of Functionality: Patient is normally independent of activities of daily living. Exam - Vital Signs Vital Signs: Vital Signs x48h Temp Pulse Resp BP Pulse Ox 03/24/21 19:05 109 H 16 96/52 L 94 03/24/21 18:54 120 H 03/24/21 18:35 111 H 17 85/54 L 96 03/24/21 18:05 135 H 12 114/63 92 03/24/21 18:03 37.0 C 124 H 10 L 81/54 L 93 - Physical Exam General Appearance: positive: No acute distress, Other (sedated and intubated) Eyes Bilateral: positive: PERRL, EOMI ENT: positive: No signs of dehydration Neck: positive: No JVD, Trachea midline Respiratory: positive: Chest non-tender, No respiratory distress, Breath sounds nml. negative: Wheezes, Rales, Rhonchi Cardiovascular: positive: No murmur, Tachycardia Abdomen: positive: Non-tender, No organomegaly, Nml bowel sounds, No distention. negative: Guarding, Rebound Back: positive: Nml inspection Skin: positive: Color nml, Warm, Other (small wounds all over body) Extremities: positive: Non-tender, Full ROM, Nml appearance, No pedal edema Neurologic/Psychiatric: positive: Other (Sedated and intubated) Conclusion/Plan - Problem List (1) Intentional overdose Conclusion/Plan: Patient took about 50 to 100 tablets of Seroquel. Patient was intubated to protect his airway. He will be monitored closely in the ICU on telemetry. Should therapy worsening/prolonged QT prolongation, will consider bicarbonate an d/or lidocaine We will consult social work. Patient will likely need a mental health eval. Qualifiers: Qualified Code(s): T50.902A - Poisoning by unspecified drugs, medicaments and biological substances, intentional self-harm, initial encounter (2) Respiratory failure Conclusion/Plan: Likely secondary to drug overdose. Patient is currently sedated and intubated to protect his airway. We will do weaning trials and extubate as mentation permits. Qualifiers: Chronicity: unspecified Respiratory failure complication: hypoxia Qualified Code(s): J96.91 - Respiratory failure, unspecified with hypoxia (3) Hypokalemia Conclusion/Plan: Potassium level was 2.5. We will replace accordingly. We will also check magnesium level. (4) Methamphetamine abuse Conclusion/Plan: Toxicology was positive for methamphetamine. - Lab Results Fish Bones: 03/25/21 04:50 03/25/21 04:50 Core Measures - Anticipated LOS I expect patient to be DC'd or transferred within 96 hours.: Yes - DVT/VTE - Prophylaxis VTE/DVT Device ordered at admit?: Yes VTE/DVT Prophylaxis med ordered at admit?: Yes
[2021-03-24] MEDS ORDERED: SODIUM CHLORIDE FLUSH 0.9% 10 ML SYRINGE IVP PRN (19:35)
[2021-03-24 19:46] LABS: ABG BASE EXCESS -3.1 mmol/L (-2.0-3.0); ABG HCO3 21.8 mmol/L (22.0-26.0); ABG OXYGEN SATURATION 88 % (94-98); ABG PCO2 38 mmHg (34-45); ABG PH 7.37 (7.35-7.45); ABG PO2 58 mmHg (80-100); ALLEN TEST POSITIVE
[2021-03-24 19:47] LABS: ABG MODE OF VENTILATION SIMV; ABG RESPIRATORY RATE 16 b/min
[2021-03-24 19:52] LABS: B. PARAPERTUSSIS- RESP PCR PAN NOT DETECTED; B. PERTUSSIS- RESP PCR PANEL NOT DETECTED; C. PNEUMONIAE- RESP PCR PANEL NOT DETECTED; CORONAVIRUS 229E-RESP PCR NOT DETECTED; CORONAVIRUS HKU1-RESP PCR NOT DETECTED; CORONAVIRUS NL63-RESP PCR NOT DETECTED; CORONAVIRUS OC43-RESP PCR NOT DETECTED; HUMAN METAPNEUMOVIRUS NOT DETECTED; INFLUENZA A- RESP PCR PANEL NOT DETECTED; INFLUENZA B - RESP PCR PANEL NOT DETECTED; M. PNEUMONIAE- RESP PCR PANEL NOT DETECTED; PARAINFLUENZA VIRUS 1 NOT DETECTED; PARAINFLUENZA VIRUS 2 NOT DETECTED; PARAINFLUENZA VIRUS 3 NOT DETECTED; PARAINFLUENZA VIRUS 4 NOT DETECTED; RHINOVIRUS/ENTEROVIRUS NOT DETECTED; RSV- RESP PCR PANEL NOT DETECTED; SARS-CoV-2 -RESP PCR PANEL NOT DETECTED
[2021-03-24] MEDS ORDERED: PROPOFOL 200 MG/20 ML VIAL IVP ONE (20:32)
[2021-03-24] MEDS ORDERED: MAGNESIUM SULFATE 2 GRAM 2 GM/50 ML BAG IV ONE (21:02)
[2021-03-24] MEDS: D5.45NS W/20 MEQ KCL 1,000 ML IV SCH (22:18)
[2021-03-24] MEDS: PROPOFOL 1000 MG/100 ML 1,000 MG/100 ML BOTTLE IV SCH (22:34)
[2021-03-24] MEDS: SODIUM CHLORIDE FLUSH 0.9% 10 ML SYRINGE IVP SCH (23:35)
[2021-03-24] MEDS: POTASSIUM CHLOR 10 MEQ/100 ML 10 MEQ/100 ML BAG IV SCH (23:58)
[2021-03-25] MEDS: POTASSIUM CHLOR 10 MEQ/100 ML 10 MEQ/100 ML BAG IV SCH ×5 (01:00→05:28)
[2021-03-25] MEDS: PROPOFOL 1000 MG/100 ML 1,000 MG/100 ML BOTTLE IV SCH (03:43)
[2021-03-25] MEDS: D5.45NS W/20 MEQ KCL 1,000 ML IV SCH ×2 (05:54→14:15)
[2021-03-25 06:12] LABS: BASOPHILS % (AUTO) 0.3 %; EOSINOPHILS # (AUTO) 0.1 10^3/uL (0.0-0.7); EOSINOPHILS % (AUTO) 0.9 %; HGB - HEMOGLOBIN 11.4 g/dL (14.0-18.0); LYMPHOCYTES # (AUTO) 1.2 10^3/uL (1.5-3.5); LYMPHOCYTES % (AUTO) 17.8 %; MEAN CORPUSCULAR HEMOGLOBIN 30.2 pg (27.0-31.0); MEAN CORPUSCULAR HGB CONC 34.5 g/dL (32.0-36.0); MEAN CORPUSCULAR VOLUME 87.5 fL (80.0-94.0); MONOCYTES # (AUTO) 0.7 10^3/uL (0.0-1.0); NEUTROPHILS # (AUTO) 4.7 10^3/uL (1.5-6.6); NEUTROPHILS % (AUTO) 70.7 %; PLT - PLATELET COUNT 238 10^3/uL (130-450); RED BLOOD COUNT 3.77 10^6/uL (4.70-6.10); RED CELL DISTRIBUTION WIDTH 12.2 % (12.0-15.0); WHITE BLOOD COUNT 6.7 x10^3/uL (4.8-10.8)
[2021-03-25 06:25] LABS: CALCIUM 8.3 mg/dL (8.5-10.3); CREATININE 0.7 mg/dL (0.6-1.2); MAGNESIUM 2.5 mg/dL (1.7-2.8); POTASSIUM 4.1 mmol/L (3.5-5.0)
[2021-03-25] MEDS: SODIUM CHLORIDE FLUSH 0.9% 10 ML SYRINGE IVP SCH ×3 (09:00→23:56)
--- NOTE | 2021-03-25 13:12 | PROVIDER PROGRESS NOTE ---
Subjective - Prog Note Date Prog Note Date: 03/25/21 Prog Note Time: 13:09 - Subjective Subjective: No new information from home. Patient has been stable overnight. No V. tach. Current Medications - Current Medications Current Medications: Active Medications Potassium Chloride/Dextrose/Sod Cl (D5.45ns W/20 Meq Kcl) 1,000 mls @ 125 mls/hr IV .Q8H [facility] Last Admin: 03/25/21 05:54 Dose: 125 mls/hr Propofol (Diprivan) 1,000 mg in 100 mls @ 7.56 mls/hr IV .[id number] [facility]; Protocol Last Titration: 03/25/21 09:10 Dose: 0 mcg/kg/min, 0 mls/hr Sodium Chloride (Sodium Chloride Flush 0.9% 10 Ml Syringe) 10 ml IVP 0100,0900,1700 [facility] Last Admin: 03/24/21 23:35 Dose: 10 ml Sodium Chloride (Sodium Chloride Flush 0.9% 10 Ml Syringe) 10 ml IVP PRN PRN PRN Reason: NEEDED PER PROVIDER ORDERS Objective - Vital Signs/Intake & Output Reviewed Vital Signs: Yes Vital Signs: Vital Signs x48h Temp Pulse Pulse Resp BP Pulse Ox 03/25/21 12:00 36.5 C 72 15 115/73 99 03/25/21 11:00 80 15 119/75 98 03/25/21 10:00 77 16 112/72 100 03/25/21 09:35 66 03/25/21 09:00 70 13 115/75 100 03/25/21 08:22 72 03/25/21 07:57 70 03/25/21 07:49 36.4 C L 70 12 105/71 100 03/25/21 07:03 74 03/25/21 07:00 75 12 97/62 100 03/25/21 06:08 77 03/25/21 06:00 72 12 102/71 100 Intake & Output: Intake & Output 03/22/21 03/23/21 03/24/21 03/25/21 23:59 23:59 23:59 23:59 Intake Total 3959.905 0732.097 Output Total 325 1020 Balance 868.034 926.097 - Objective General Appearance: positive: No acute distress, Other (Asleep, snoring, minimally responsive to voice. But no respiratory distress, vital signs stable. Extubated since this morning.) Eyes Bilateral: positive: PERRL, EOMI ENT: positive: No signs of dehydration Neck: positive: No JVD. negative: Stiff neck Respiratory: positive: No respiratory distress. negative: Wheezes, Rales, Rhonchi Cardiovascular: positive: Regular rate & rhythm. negative: Systolic murmur, Gallop/S4, Friction rub Abdomen: positive: Non-tender, No organomegaly, Nml bowel sounds, No distention Skin: positive: Warm, Dry Extremities: positive: Full ROM, No pedal edema Neurologic/Psychiatric: positive: Other (Spontaneous respiration, spontaneous movement of arms and legs when you trying to mouth care, but really not r esponding to voice right now. Seems to be asleep. Pupils are reactive.) - Lab Results Fish Bones: 03/25/21 04:50 03/25/21 04:50 Other Labs: Lab Results x24hrs 03/25/21 03/25/21 03/24/21 Range/Units 04:50 04:50 21:08 WBC 6.7 (4.8-10.8) x10^3/uL RBC 3.77 L (4.70-6.10) 10^6/uL Hgb 11.4 L (14.0-18.0) g/dL Hct 33.0 L (42.0-52.0) % MCV 87.5 (80.0-94.0) fL MCH 30.2 (27.0-31.0) pg MCHC 34.5 (32.0-36.0) g/dL RDW 12.2 (12.0-15.0) % Plt Count 238 (130-450) 10^3/uL MPV 10.0 (7.4-11.4) fL Neut # (Auto) 4.7 (1.5-6.6) 10^3/uL Lymph # (Auto) 1.2 L (1.5-3.5) 10^3/uL Jackson # (Auto) 0.7 (0.0-1.0) 10^3/uL Eos # (Auto) 0.1 (0.0-0.7) 10^3/uL Baso # (Auto) 0.0 (0.0-0.1) 10^3/uL Absolute Nucleated RBC 0.00 x10^3/uL Nucleated RBC % 0.0 /100WBC Bld Gas Analysis Time Sample Site ABG pH (7.35-7.45) ABG pCO2 (34-45) mmHg ABG pO2 (80-100) mmHg ABG HCO3 (22.0-26.0) mmol/L ABG Total CO2 (21.0-29.0) MMOL/L ABG O2 Saturation (94-98) % ABG Base Excess (-2.0-3.0) mmol/L Juan Test Respiration Rate b/min O2 Delivery Device Vent Mode FiO2 Tidal Volume mL PEEP cmH2O Pressure Support Vent cmH2O Sodium 136 (135-145) mmol/L Potassium 4.1 (3.5-5.0) mmol/L Chloride 107 (101-111) mmol/L Carbon Dioxide 23 (21-32) mmol/L Anion Gap 6.0 (6-13) BUN 10 (6-20) mg/dL Creatinine 0.7 (0.6-1.2) mg/dL Estimated GFR (MDRD) 128 (>89) Glucose 145 H (70-100) mg/dL Calcium 8.3 L (8.5-10.3) mg/dL Phosphorus 3.0 (2.5-4.6) mg/dL Magnesium 2.5 (1.7-2.8) mg/dL Total Bilirubin (0.2-1.0) mg/dL AST (10-42) IU/L ALT (10-60) IU/L Alkaline Phosphatase (42-121) IU/L B-Natriuretic Peptide (5-100) pg/mL Total Protein (6.7-8.2) g/dL Albumin (3.2-5.5) g/dL Globulin (2.1-4.2) g/dL Albumin/Globulin Ratio (1.0-2.2) Lipase (22-51) U/L TSH (0.34-5.60) uIU/mL Urine Color Urine Clarity (CLEAR) Urine pH (5.0-7.5) PH Ur Specific [place] (1.002-1.030) Urine Protein (NEGATIVE) mg/dL Urine Glucose (UA) (NEGATIVE) mg/dL Urine Ketones (NEGATIVE) mg/dL Urine Occult Blood (NEGATIVE) Urine Nitrite (NEGATIVE) Urine Bilirubin (NEGATIVE) Urine Urobilinogen (NORMAL) E.U./dL Ur Leukocyte Esterase (NEGATIVE) Ur Microscopic Review Urine Culture Comments Nasal Adenovirus (PCR) Nasal B. parapertussis DNA (PCR) Nasal Coronavir 229E PCR Nasal Coronavir HKU1 PCR Nasal Coronavir NL63 PCR Nasal Coronavir OC43 PCR Nasal Enterovir/Rhinovir PCR Nasal Influenza B PCR Nasal Influenza A PCR Nasal Parainfluen 1 PCR Nasal Parainfluen 2 PCR Nasal Parainfluen 3 PCR Nasal Parainfluen 4 PCR Nasal RSV (PCR) Nasal Screen MRSA (PCR) NEGATIVE (NEGATIVE) Nasal B.pertussis DNA PCR Nasal C.pneumoniae (PCR) Khurram Human Metapneumo PCR Nasal M.pneumoniae (PCR) Nasal SARS-CoV-2 (PCR) Salicylates mg/dL Urine Opiates Screen (NEGATIVE) Ur Oxycodone Screen (NEGATIVE) Urine Methadone Screen (NEGATIVE) Ur Propoxyphene Screen (NEGATIVE) Acetaminophen (10-30) ug/mL Ur Barbiturates Screen (NEGATIVE) Ur Tricyclics Screen (NEGATIVE) Ur Phencyclidine Scrn (NEGATIVE) Ur Amphetamine Screen (NEGATIVE) U Methamphetamines Scrn (NEGATIVE) U Benzodiazepines Scrn (NEGATIVE) Urine Cocaine Screen (NEGATIVE) U Cannabinoids Screen (NEGATIVE) Ethyl Alcohol mg/dL 03/24/21 03/24/21 03/24/21 Range/Units 19:38 18:40 18:38 WBC (4.8-10.8) x10^3/uL RBC (4.70-6.10) 10^6/uL Hgb (14.0-18.0) g/dL Hct (42.0-52.0) % MCV (80.0-94.0) fL MCH (27.0-31.0) pg MCHC (32.0-36.0) g/dL RDW (12.0-15.0) % Plt Count (130-450) 10^3/uL MPV (7.4-11.4) fL Neut # (Auto) (1.5-6.6) 10^3/uL Lymph # (Auto) (1.5-3.5) 10^3/uL Jackson # (Auto) (0.0-1.0) 10^3/uL Eos # (Auto) (0.0-0.7) 10^3/uL Baso # (Auto) (0.0-0.1) 10^3/uL Absolute Nucleated RBC x10^3/uL Nucleated RBC % /100WBC Bld Gas Analysis Time 194 Sample Site RIGHT RADIAL ABG pH 7.37 (7.35-7.45) ABG pCO2 38 (34-45) mmHg ABG pO2 58 L (80-100) mmHg ABG HCO3 21.8 L (22.0-26.0) mmol/L ABG Total CO2 23.0 (21.0-29.0) MMOL/L ABG O2 Saturation 88 L (94-98) % ABG Base Excess -3.1 L (-2.0-3.0) mmol/L Juan Test POSITIVE Respiration Rate 16 b/min O2 Delivery Device VENTILATOR Vent Mode SIMV FiO2 30.00 Tidal Volume 500 mL PEEP 5 cmH2O Pressure Support Vent 10 cmH2O Sodium (135-145) mmol/L Potassium (3.5-5.0) mmol/L Chloride (101-111) mmol/L Carbon Dioxide (21-32) mmol/L Anion Gap (6-13) BUN (6-20) mg/dL Creatinine (0.6-1.2) mg/dL Estimated GFR (MDRD) (>89) Glucose (70-100) mg/dL Calcium (8.5-10.3) mg/dL Phosphorus (2.5-4.6) mg/dL Magnesium (1.7-2.8) mg/dL Total Bilirubin (0.2-1.0) mg/dL AST (10-42) IU/L ALT (10-60) IU/L Alkaline Phosphatase (42-121) IU/L B-Natriuretic Peptide (5-100) pg/mL Total Protein (6.7-8.2) g/dL Albumin (3.2-5.5) g/dL Globulin (2.1-4.2) g/dL Albumin/Globulin Ratio (1.0-2.2) Lipase (22-51) U/L TSH (0.34-5.60) uIU/mL Urine Color YELLOW Urine Clarity CLEAR (CLEAR) Urine pH 6.0 (5.0-7.5) PH Ur Specific [place] >=1.030 H (1.002-1.030) Urine Protein TRACE (NEGATIVE) mg/dL Urine Glucose (UA) NEGATIVE (NEGATIVE) mg/dL Urine Ketones NEGATIVE (NEGATIVE) mg/dL Urine Occult Blood NEGATIVE (NEGATIVE) Urine Nitrite NEGATIVE (NEGATIVE) Urine Bilirubin NEGATIVE (NEGATIVE) Urine Urobilinogen 0.2 (NORMAL) (NORMAL) E.U./dL Ur Leukocyte Esterase NEGATIVE (NEGATIVE) Ur Microscopic Review NOT INDICATED Urine Culture Comments NOT INDICATED Nasal Adenovirus (PCR) NOT DETECTED Nasal B. parapertussis DNA (PCR) NOT DETECTED Nasal Coronavir 229E PCR NOT DETECTED Nasal Coronavir HKU1 PCR NOT DETECTED Nasal Coronavir NL63 PCR NOT DETECTED Nasal Coronavir OC43 PCR NOT DETECTED Nasal Enterovir/Rhinovir PCR NOT DETECTED Nasal Influenza B PCR NOT DETECTED Nasal Influenza A PCR NOT DETECTED Nasal Parainfluen 1 PCR NOT DETECTED Nasal Parainfluen 2 PCR NOT DETECTED Nasal Parainfluen 3 PCR NOT DETECTED Nasal Parainfluen 4 PCR NOT DETECTED Nasal RSV (PCR) NOT DETECTED Nasal Screen MRSA (PCR) (NEGATIVE) Nasal B.pertussis DNA PCR NOT DETECTED Nasal C.pneumoniae (PCR) NOT DETECTED Khurram Human Metapneumo PCR NOT DETECTED Nasal M.pneumoniae (PCR) NOT DETECTED Nasal SARS-CoV-2 (PCR) NOT DETECTED Salicylates mg/dL Urine Opiates Screen NEGATIVE (NEGATIVE) Ur Oxycodone Screen NEGATIVE (NEGATIVE) Urine Methadone Screen NEGATIVE (NEGATIVE) Ur Propoxyphene Screen NEGATIVE (NEGATIVE) Acetaminophen (10-30) ug/mL Ur Barbiturates Screen NEGATIVE (NEGATIVE) Ur Tricyclics Screen POSITIVE H (NEGATIVE) Ur Phencyclidine Scrn NEGATIVE (NEGATIVE) Ur Amphetamine Screen POSITIVE H (NEGATIVE) U Methamphetamines Scrn POSITIVE H (NEGATIVE) U Benzodiazepines Scrn NEGATIVE (NEGATIVE) Urine Cocaine Screen NEGATIVE (NEGATIVE) U Cannabinoids Screen NEGATIVE (NEGATIVE) Ethyl Alcohol mg/dL 03/24/21 03/24/21 03/24/21 Range/Units 18:27 18:11 18:11 WBC (4.8-10.8) x10^3/uL RBC (4.70-6.10) 10^6/uL Hgb (14.0-18.0) g/dL Hct (42.0-52.0) % MCV (80.0-94.0) fL MCH (27.0-31.0) pg MCHC (32.0-36.0) g/dL RDW (12.0-15.0) % Plt Count (130-450) 10^3/uL MPV (7.4-11.4) fL Neut # (Auto) (1.5-6.6) 10^3/uL Lymph # (Auto) (1.5-3.5) 10^3/uL Jackson # (Auto) (0.0-1.0) 10^3/uL Eos # (Auto) (0.0-0.7) 10^3/uL Baso # (Auto) (0.0-0.1) 10^3/uL Absolute Nucleated RBC x10^3/uL Nucleated RBC % /100WBC Bld Gas Analysis Time Sample Site ABG pH (7.35-7.45) ABG pCO2 (34-45) mmHg ABG pO2 (80-100) mmHg ABG HCO3 (22.0-26.0) mmol/L ABG Total CO2 (21.0-29.0) MMOL/L ABG O2 Saturation (94-98) % ABG Base Excess (-2.0-3.0) mmol/L Juan Test Respiration Rate b/min O2 Delivery Device Vent Mode FiO2 Tidal Volume mL PEEP cmH2O Pressure Support Vent cmH2O Sodium (135-145) mmol/L Potassium (3.5-5.0) mmol/L Chloride (101-111) mmol/L Carbon Dioxide (21-32) mmol/L Anion Gap (6-13) BUN (6-20) mg/dL Creatinine (0.6-1.2) mg/dL Estimated GFR (MDRD) (>89) Glucose (70-100) mg/dL Calcium (8.5-10.3) mg/dL Phosphorus 3.3 (2.5-4.6) mg/dL Magnesium 1.8 (1.7-2.8) mg/dL Total Bilirubin (0.2-1.0) mg/dL AST (10-42) IU/L ALT (10-60) IU/L Alkaline Phosphatase (42-121) IU/L B-Natriuretic Peptide 13 (5-100) pg/mL Total Protein (6.7-8.2) g/dL Albumin (3.2-5.5) g/dL Globulin (2.1-4.2) g/dL Albumin/Globulin Ratio (1.0-2.2) Lipase (22-51) U/L TSH 1.33 (0.34-5.60) uIU/mL Urine Color Urine Clarity (CLEAR) Urine pH (5.0-7.5) PH Ur Specific [place] (1.002-1.030) Urine Protein (NEGATIVE) mg/dL Urine Glucose (UA) (NEGATIVE) mg/dL Urine Ketones (NEGATIVE) mg/dL Urine Occult Blood (NEGATIVE) Urine Nitrite (NEGATIVE) Urine Bilirubin (NEGATIVE) Urine Urobilinogen (NORMAL) E.U./dL Ur Leukocyte Esterase (NEGATIVE) Ur Microscopic Review Urine Culture Comments Nasal Adenovirus (PCR) Nasal B. parapertussis DNA (PCR) Nasal Coronavir 229E PCR Nasal Coronavir HKU1 PCR Nasal Coronavir NL63 PCR Nasal Coronavir OC43 PCR Nasal Enterovir/Rhinovir PCR Nasal Influenza B PCR Nasal Influenza A PCR Nasal Parainfluen 1 PCR Nasal Parainfluen 2 PCR Nasal Parainfluen 3 PCR Nasal Parainfluen 4 PCR Nasal RSV (PCR) Nasal Screen MRSA (PCR) (NEGATIVE) Nasal B.pertussis DNA PCR Nasal C.pneumoniae (PCR) Khurram Human Metapneumo PCR Nasal M.pneumoniae (PCR) Nasal SARS-CoV-2 (PCR) Salicylates mg/dL Urine Opiates Screen (NEGATIVE) Ur Oxycodone Screen (NEGATIVE) Urine Methadone Screen (NEGATIVE) Ur Propoxyphene Screen (NEGATIVE) Acetaminophen (10-30) ug/mL Ur Barbiturates Screen (NEGATIVE) Ur Tricyclics Screen (NEGATIVE) Ur Phencyclidine Scrn (NEGATIVE) Ur Amphetamine Screen (NEGATIVE) U Methamphetamines Scrn (NEGATIVE) U Benzodiazepines Scrn (NEGATIVE) Urine Cocaine Screen (NEGATIVE) U Cannabinoids Screen (NEGATIVE) Ethyl Alcohol mg/dL 03/24/21 03/24/21 Range/Units 18:11 18:11 WBC 7.6 (4.8-10.8) x10^3/uL RBC 4.20 L (4.70-6.10) 10^6/uL Hgb 12.8 L (14.0-18.0) g/dL Hct 36.5 L (42.0-52.0) % MCV 86.9 (80.0-94.0) fL MCH 30.5 (27.0-31.0) pg MCHC 35.1 (32.0-36.0) g/dL RDW 11.9 L (12.0-15.0) % Plt Count 297 (130-450) 10^3/uL MPV 9.6 (7.4-11.4) fL Neut # (Auto) 5.4 (1.5-6.6) 10^3/uL Lymph # (Auto) 1.4 L (1.5-3.5) 10^3/uL Jackson # (Auto) 0.7 (0.0-1.0) 10^3/uL Eos # (Auto) 0.0 (0.0-0.7) 10^3/uL Baso # (Auto) 0.0 (0.0-0.1) 10^3/uL Absolute Nucleated RBC 0.00 x10^3/uL Nucleated RBC % 0.0 /100WBC Bld Gas Analysis Time Sample Site ABG pH (7.35-7.45) ABG pCO2 (34-45) mmHg ABG pO2 (80-100) mmHg ABG HCO3 (22.0-26.0) mmol/L ABG Total CO2 (21.0-29.0) MMOL/L ABG O2 Saturation (94-98) % ABG Base Excess (-2.0-3.0) mmol/L Juan Test Respiration Rate b/min O2 Delivery Device Vent Mode FiO2 Tidal Volume mL PEEP cmH2O Pressure Support Vent cmH2O Sodium 136 (135-145) mmol/L Potassium 2.5 L* (3.5-5.0) mmol/L Chloride 102 (101-111) mmol/L Carbon Dioxide 22 (21-32) mmol/L Anion Gap 12.0 (6-13) BUN 11 (6-20) mg/dL Creatinine 0.8 (0.6-1.2) mg/dL Estimated GFR (MDRD) 109 (>89) Glucose 134 H (70-100) mg/dL Calcium 8.7 (8.5-10.3) mg/dL Phosphorus (2.5-4.6) mg/dL Magnesium (1.7-2.8) mg/dL Total Bilirubin 1.0 (0.2-1.0) mg/dL AST 17 (10-42) IU/L ALT 20 (10-60) IU/L Alkaline Phosphatase 49 (42-121) IU/L B-Natriuretic Peptide (5-100) pg/mL Total Protein 6.7 (6.7-8.2) g/dL Albumin 4.0 (3.2-5.5) g/dL Globulin 2.7 (2.1-4.2) g/dL Albumin/Globulin Ratio 1.5 (1.0-2.2) Lipase 17 L (22-51) U/L TSH (0.34-5.60) uIU/mL Urine Color Urine Clarity (CLEAR) Urine pH (5.0-7.5) PH Ur Specific [place] (1.002-1.030) Urine Protein (NEGATIVE) mg/dL Urine Glucose (UA) (NEGATIVE) mg/dL Urine Ketones (NEGATIVE) mg/dL Urine Occult Blood (NEGATIVE) Urine Nitrite (NEGATIVE) Urine Bilirubin (NEGATIVE) Urine Urobilinogen (NORMAL) E.U./dL Ur Leukocyte Esterase (NEGATIVE) Ur Microscopic Review Urine Culture Comments Nasal Adenovirus (PCR) Nasal B. parapertussis DNA (PCR) Nasal Coronavir 229E PCR Nasal Coronavir HKU1 PCR Nasal Coronavir NL63 PCR Nasal Coronavir OC43 PCR Nasal Enterovir/Rhinovir PCR Nasal Influenza B PCR Nasal Influenza A PCR Nasal Parainfluen 1 PCR Nasal Parainfluen 2 PCR Nasal Parainfluen 3 PCR Nasal Parainfluen 4 PCR Nasal RSV (PCR) Nasal Screen MRSA (PCR) (NEGATIVE) Nasal B.pertussis DNA PCR Nasal C.pneumoniae (PCR) Khurram Human Metapneumo PCR Nasal M.pneumoniae (PCR) Nasal SARS-CoV-2 (PCR) Salicylates < 6.0 mg/dL Urine Opiates Screen (NEGATIVE) Ur Oxycodone Screen (NEGATIVE) Urine Methadone Screen (NEGATIVE) Ur Propoxyphene Screen (NEGATIVE) Acetaminophen < 10 L (10-30) ug/mL Ur Barbiturates Screen (NEGATIVE) Ur Tricyclics Screen (NEGATIVE) Ur Phencyclidine Scrn (NEGATIVE) Ur Amphetamine Screen (NEGATIVE) U Methamphetamines Scrn (NEGATIVE) U Benzodiazepines Scrn (NEGATIVE) Urine Cocaine Screen (NEGATIVE) U Cannabinoids Screen (NEGATIVE) Ethyl Alcohol < 5.0 mg/dL Assessment/Plan - Problem List (1) Intentional overdose Impression: Patient took about 50 to 100 tablets of Seroquel. Patient was intubated to protect his airway 03/24. Today weaned off propofol and able to wake up enough to follow commands but still sleepy. nif and BP/RR stable . Respiratory extubated. Patient has been stable for a few hours now off of vent. No increased RR. Pulse and BP stable. We will closely monitor in the ICU on telemetry. Should therapy worsening/prolonged QT prolongation, will consider bicarbonate and/or lidocaine Social work notified and they will see him when medically cleared and wakes up. Qualifiers: Encounter type: initial encounter Qualified Code(s): T50.902A - Poisoning by unspecified drugs, medicaments and biological substances, intentional self- harm, initial encounter (2) Respiratory failure Conclusion/Plan: Likely secondary to drug overdose. Sedation lightened and weaned off this morning. Respiratory extubated. Qualifiers: Chronicity: unspecified Respiratory failure complication: hypoxia Qualified Code(s): J96.91 - Respiratory failure, unspecified with hypoxia (3) Hypokalemia Conclusion/Plan: Potassium level was 2.5. Now that replaced he is 4.1. Continue to monitor. (4) Methamphetamine abuse Conclusion/Plan: Toxicology was positive for methamphetamine. Qualifiers: Qualified Code(s): T50.902A - Poisoning by unspecified drugs, medicaments and biological substances, intentional self-harm, initial encounter
[2021-03-25] MEDS: SODIUM CHLORIDE 0.9% 1,000 ML IV SCH (16:47)
[2021-03-26] MEDS: SODIUM CHLORIDE 0.9% 1,000 ML IV SCH ×2 (05:18→16:44)
[2021-03-26 05:21] LABS: BASOPHILS % (AUTO) 0.5 %; EOSINOPHILS # (AUTO) 0.1 10^3/uL (0.0-0.7); EOSINOPHILS % (AUTO) 1.5 %; HCT - HEMATOCRIT 36.5 % (42.0-52.0); HGB - HEMOGLOBIN 12.5 g/dL (14.0-18.0); LYMPHOCYTES # (AUTO) 1.6 10^3/uL (1.5-3.5); LYMPHOCYTES % (AUTO) 19.2 %; MEAN CORPUSCULAR HEMOGLOBIN 30.6 pg (27.0-31.0); MEAN CORPUSCULAR HGB CONC 34.2 g/dL (32.0-36.0); MEAN CORPUSCULAR VOLUME 89.2 fL (80.0-94.0); MONOCYTES # (AUTO) 0.7 10^3/uL (0.0-1.0); MONOCYTES % (AUTO) 8.5 %; NEUTROPHILS # (AUTO) 5.8 10^3/uL (1.5-6.6); NEUTROPHILS % (AUTO) 70.1 %; PLT - PLATELET COUNT 266 10^3/uL (130-450); RED BLOOD COUNT 4.09 10^6/uL (4.70-6.10); RED CELL DISTRIBUTION WIDTH 12.4 % (12.0-15.0); WHITE BLOOD COUNT 8.3 x10^3/uL (4.8-10.8)
[2021-03-26 05:26] LABS: CALCIUM 8.5 mg/dL (8.5-10.3); CREATININE 0.7 mg/dL (0.6-1.2); POTASSIUM 3.7 mmol/L (3.5-5.0)
--- NOTE | 2021-03-26 09:57 | PHARMACY PROGRESS NOTE ---
- Best Possible Medication History Admit Date and Time: 03/24/211934 Processed by: Pharmacy Medication History completed: Yes Patient Interview: Pt unable to participate Secondary Source(s): Pharmacy records, Insurance records As the person ultimately responsible for medication therapy, providers are able to order a medication from an existing home medication list in [facility] via the "Reconcile Routine" prior to Confirmation of that medication by system support developer. Such practice is discouraged except when the physician, in their clinical judgment, deems that a medical need exists for a medication without regard to previous use.
[2021-03-26] MEDS: SODIUM CHLORIDE FLUSH 0.9% 10 ML SYRINGE IVP SCH ×2 (10:34→16:44)
--- NOTE | 2021-03-26 17:00 | Discharge Plan ---
Discharge Plan Problem Reviewed?: Yes Disposition: 01 Home, Self Care Condition: Stable Diet: Regular Activity Restrictions: Activity as Tolerated Shower Restrictions: No Driving Restrictions: No Health Concerns: You presented to our emergency room unconscious after a deliberate drug overdose with Seroquel tablets. It was unclear how many you took. You stated to social work and to the mental health professional that evaluated you that it was an impulsive move on your part. You just were not feeling well emotionally and you really did not need to kill yourself. The mental health professional has evaluated you and set up a plan with you about how he will follow through with your substance abuse, and your mental health. You and your girlfriend will follow through on that. On the basis of that she feels you are safe to discharge to home without risk of killing yourself at this time. Plan of Treatment: You need to follow-up with the mental health professionals that she has set up for you. You will follow-up by making an appointment. They will start you on the appropriate medications. Care Goals: To have stable mental health, stable life goals, and not to come back to the hospital. Assessment: Mental health professional has been in the office to state that the patient is motivated, and he appears to be motivated to be compliant, and she feels safe to let him go home. No Smoking: If you smoke, Please STOP! Call for help. Follow-up with: Emilia Dangelo ARNP [Provider Admit Priv/Credential] -
[2021-03-26 18:09] VITALS: BP 151/79
--- NOTE | 2021-03-26 20:20 | DISCHARGE SUMMARY ---
"Discharge Summary Admit Date: 03/24/21 Discharge Date: 03/26/21 Discharging Provider: Elizabeth Hirsch MD Primary Care Provider: EDDY Choudhary Code Status: Attempt Resuscitation Condition at Discharge: Stable Discharge Disposition: 01 Home, Self Care - DIAGNOSES Discharge Diagnoses with Status of Each Condition: 1. Intentional drug overdose with Seroquel 2. 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 Hypokalemia 4. History of methamphetamine abuse - HPI History of Present Illness: Patient is a 36-year-old obese male who presented to the ED after intentional ingestion of about 50 to 100 tablets of Seroquel. He was last seen normal around noon to 1 PM. Around 5:30 PM he knocked on his sister's door informing her that he had ingested the medication. EMS was called and he was brought to the ED. In the ED he was increasingly very somnolent. In order to protect his airway he was intubated and presented for admission for further management. At the time of exam he was intubated and sedated thus unable to provide history. This history was obtained from his mother and siblings. However the knowledge of his medical history is limited. His mother thinks he may have had a previous attempt of self-harm in the past but could not provide specifics. The patient lives on the same property as his mother and other siblings. - Past Medical History Cardiovascular: reports: None Respiratory: reports: COPD Neuro: reports: None Endocrine/Autoimmune: reports: Other (Obesity) GI: reports: None : reports: None HEENT: reports: None Psych: reports: Depression, Bipolar disorder Musculoskeletal: reports: None Derm: reports: None MRSA Hx?: No Other Past Medical History: Methamphetamine abuse - CONSULTS | PROCEDURES Procedures: Chest x-ray without acute cardiopulmonary process. Patient was intubated to protect his airway overnight. Then extubated the next morning - HOSPITAL COURSE Hospital Course: Patient was intubated in the emergency room to protect his airway. EKGs were done to watch QT interval and they stayed normal. There is no arrhythmias on telemetry. The next morning he was extubated. He states sleeping most of the day but by evening was alert, oriented and hungry. Wanting to eat. On the day of discharge he was ambulating in the hallways with a one-to-one supervision. Eating 100% of his food. [facility] by [facility] who felt that he was not at risk, not a grave danger for self, and felt that the patient could follow through with a plan for substance abuse, and mental health follow-up. Assess the patient was discharged in stable condition. Temperature 37.2. Respirations 16. Pulse 89. Blood pressure 151/79. 94% on room air. 5 foot 7 inch white male. Weighs 125 kg. Seems to have some slight cognitive deficits. Poor insight. Neck is supple. Lungs are clear to auscultation and percussion. PMI is normally placed with a regular rate and rhythm. Abdomen is benign. Extremities without edema. No cerebellar ataxia, walking normally without any durable medic al equipment. Patient is discharged in stable condition. Greater than 30 minutes was spent coordinating discharge with CD P, social work, and the patient. - ALLERGIES Allergies/Adverse Reactions: Allergies Allergy/AdvReac Type Severity Reaction Status Date / Time No Known Drug Allergies Allergy Verified 03/24/21 18:03 - LABS Result Diagrams: 03/26/21 04:55 03/26/21 04:55"
[2021-03-27] MEDS ORDERED: polyethylene glycoL 3350 17 GM PACKET PO SCH (09:00)
== END 2021-03-26 18:07 | disposition home or self-care (01) | DRG 917 ==
LOC: EDUNIT# → ED 17:58 → ICU 19:35 → MS3 03-25 17:55
PROVIDERS: ADMIT Internal Medicine; ATTEND Specialist
DX: T43.592A Poisoning by other antipsychotics and neuroleptics, intentional self-harm, initial encounter (principal); J96.01 Acute respiratory failure with hypoxia; Z68.41 Body mass index [BMI] 40.0-44.9, adult; Y92.009 Unspecified place in unspecified non-institutional (private) residence as the place of occurrence of the external cause; F15.10 Other stimulant abuse, uncomplicated; E87.6 Hypokalemia; Z20.822 Contact with and (suspected) exposure to COVID-19; J44.9 Chronic obstructive pulmonary disease, unspecified; E66.9 Obesity, unspecified; F31.9 Bipolar disorder, unspecified
CPT/HCPCS: 0202U; 31500; 36415; 36600; 43753; 51702; 71045; 80048; 80053; 80306; 80307; 80320; 80329; 81003; 82803; 83690; 83735; 83880; 84100; 84443; 85025; 87150; 93005; 94002; 94003; 96365; 96368; 99291; 81001; 87086; 94770

== ENCOUNTER 2023-06-12 14:15 | Emergency (ER) | payer MEDICAID ==
[2023-06-12 14:38] LABS: RAPID STREP SCREEN Negative (Negative)
[2023-06-12 15:24] LABS: CORONAVIRUS 229E-RESP PCR NOT DETECTED; CORONAVIRUS HKU1-RESP PCR NOT DETECTED; CORONAVIRUS NL63-RESP PCR NOT DETECTED; CORONAVIRUS OC43-RESP PCR NOT DETECTED; HUMAN METAPNEUMOVIRUS NOT DETECTED; INFLUENZA A H1 2009- RESP PCR DETECTED; INFLUENZA B - RESP PCR PANEL NOT DETECTED; PARAINFLUENZA VIRUS 1 NOT DETECTED; PARAINFLUENZA VIRUS 2 NOT DETECTED; PARAINFLUENZA VIRUS 3 NOT DETECTED; PARAINFLUENZA VIRUS 4 NOT DETECTED; RHINOVIRUS/ENTEROVIRUS NOT DETECTED; RSV- RESP PCR PANEL NOT DETECTED; SARS-CoV-2 -RESP PCR PANEL NOT DETECTED
[2023-06-12 15:25] LABS: B. PARAPERTUSSIS- RESP PCR PAN NOT DETECTED; B. PERTUSSIS- RESP PCR PANEL NOT DETECTED; C. PNEUMONIAE- RESP PCR PANEL NOT DETECTED; M. PNEUMONIAE- RESP PCR PANEL NOT DETECTED
--- NOTE | 2023-06-12 15:59 | ED Physician Documentation ---
History of Present Illness - Stated complaint Stated Complaint: COUGH,FEVER,DISCOMFORT - Chief complaint Chief Complaint: General - History obtained from History obtained from: Patient - Additonal information Additional information: 38-year-old gentleman with morbid obesity and tobacco abuse has been sick since yesterday with cough, runny nose, sore throat, body aches and fevers. PD PAST MEDICAL HISTORY - Past Medical History Past Medical History: Yes Cardiovascular: None Respiratory: COPD Neuro: None Endocrine/Autoimmune: Other GI: None : None HEENT: None Psych: Depression, Bipolar disorder Musculoskeletal: None Derm: None - Past Surgical History Past Surgical History: No - Present Medications Home Medications: Ambulatory Orders Medication Instructions Recorded Confirmed Benzonatate [Tessalon] 200 mg PO TID PRN #20 cap 06/12/23 Ibuprofen [Motrin] 800 mg PO Q8H PRN #30 tablet 06/12/23 Oseltamivir [Tamiflu] 75 mg PO BID #10 cap 06/12/23 guaiFENesin/CODEINE [Robitussin AC] 5 - 10 ml PO Q6H PRN #120 ml 06/12/23 - Allergies Allergies/Adverse Reactions: Allergies Allergy/AdvReac Type Severity Reaction Status Date / Time No Known Drug Allergies Allergy Verified 06/12/23 14:19 - Social History Does the pt smoke?: Yes Smoking Status: Current every day smoker Does the pt drink ETOH?: No Does the pt have substance abuse?: No - Immunizations Immunizations are current?: Yes - POLST Patient has POLST: No POLST Status: Full Code PD ED PE NORMAL - Vitals Vital signs reviewed: Yes - General General: Alert and oriented X 3, No acute distress - HEENT HEENT: PERRL, EOMI, Pharynx benign - Neck Neck: Supple, no meningeal sign, No bony TTP - Cardiac Cardiac: RRR, No murmur - Respiratory Respiratory: No respiratory distress, Clear bilaterally - Abdomen Abdomen: Non tender - Neuro Neuro: Alert and oriented X 3, Normal speech Results - Vitals Vitals: Vital Signs - 24 hr 06/12/23 06/12/23 14:19 16:10 Temperature 38.2 C H Heart Rate 90 85 Respiratory 16 18 Rate Blood Pressure 153/84 H 154/78 H O2 Saturation 94 98 Oxygen O2 Source Room air - Labs Labs: Laboratory Tests 06/12/23 06/12/23 14:24 14:24 Nasal Adenovirus (PCR) NOT DETECTED Nasal B. parapertussis DNA (PCR) NOT DETECTED Nasal Coronavir 229E PCR NOT DETECTED Nasal Coronavir HKU1 PCR NOT DETECTED Nasal Coronavir NL63 PCR NOT DETECTED Nasal Coronavir OC43 PCR NOT DETECTED Nasal Enterovir/Rhinovir PCR NOT DETECTED Nasal Influ A H1 2009 PCR DETECTED A Nasal Influenza B PCR NOT DETECTED Nasal Parainfluen 1 PCR NOT DETECTED Nasal Parainfluen 2 PCR NOT DETECTED Nasal Parainfluen 3 PCR NOT DETECTED Nasal Parainfluen 4 PCR NOT DETECTED Nasal RSV (PCR) NOT DETECTED Nasal B.pertussis DNA PCR NOT DETECTED Nasal C.pneumoniae (PCR) NOT DETECTED Khurram Human Metapneumo PCR NOT DETECTED Nasal M.pneumoniae (PCR) NOT DETECTED Nasal SARS-CoV-2 (PCR) NOT DETECTED Group A Strep Rapid Negative PD Medical Decision Making - ED course ED course: 38-year-old gentleman with flulike illness and he is positive for influenza A he here. On [employer] panel. Given his obesity and tobacco abuse he is a good candidate for Tamiflu and symptomatic treatment. Departure - Departure Disposition: 01 Home, Self Care Clinical Impression: Influenza A Condition: Good Record reviewed to determine appropriate education?: Yes Instructions: ED Flu Prescriptions: Ibuprofen [Motrin] 800 mg PO Q8H PRN #30 tablet PRN Reason: PAIN &/OR FEVER guaiFENesin/CODEINE [Robitussin AC] 5 - 10 ml PO Q6H PRN #120 ml PRN Reason: Cough Oseltamivir [Tamiflu] 75 mg PO BID #10 cap Benzonatate [Tessalon] 200 mg PO TID PRN #20 cap PRN Reason: Cough Comments: I sent your prescriptions electronically to the [facility] pharmacy at the [address] of [address] [address] [facility] in [place]. Do not drink or drive while taking codeine containing cough syrup. Return if worsening. Follow-up with your doctor on around Friday if not better. You are contagious so wear a mask and wash your hands well and generally quarantine until you are feeling much better. Forms: PCP List Discharge Date/Time: 06/12/23 16:11
[2023-06-12 16:14] VITALS: BP 154/78; O2SAT 98
== END 2023-06-12 16:11 | disposition home or self-care (01) ==
LOC: ED 14:15
DX: J09.X2 Influenza due to identified novel influenza A virus with other respiratory manifestations (principal); R05.9 Cough, unspecified; Z72.0 Tobacco use; Z11.52 Encounter for screening for COVID-19
CPT/HCPCS: 87070; 87430; 87633; 99283

== ENCOUNTER 2023-09-23 06:07 | Emergency (ER) | payer MEDICAID ==
--- NOTE | 2023-09-23 06:27 | ED Physician Documentation ---
History of Present Illness - Stated complaint Stated Complaint: COUGH/SOA - Chief complaint Chief Complaint: Resp - History obtained from History obtained from: Patient - Additonal information Additional information: The patient comes to the emergency department chief complaint of cough and shortness of breath over the last couple of weeks. He is a smoker and has been told he has COPD and states that he has been coughing up yellowish-green sputum with increasing amounts and frequency. The patient significant other states she had a similar illness just before he got it. The patient has not had any fevers. They are concerned about pneumonia. The patient does not have any known cardiac conditions. He does get some swelling down in his lower legs but it is not worse than usual right now. He does not use any inhalers at home. No other complaints at this time. PD PAST MEDICAL HISTORY - Past Medical History Past Medical History: Yes Cardiovascular: None Respiratory: COPD Neuro: None Endocrine/Autoimmune: Other GI: None : None HEENT: None Psych: Depression, Bipolar disorder Musculoskeletal: None Derm: None - Past Surgical History Past Surgical History: No - Present Medications Home Medications: Ambulatory Orders Medication Instructions Recorded Confirmed Benzonatate [Tessalon] 200 mg PO TID PRN #20 cap 06/12/23 Ibuprofen [Motrin] 800 mg PO Q8H PRN #30 tablet 06/12/23 Oseltamivir [Tamiflu] 75 mg PO BID #10 cap 06/12/23 guaiFENesin/CODEINE [Robitussin AC] 5 - 10 ml PO Q6H PRN #120 ml 06/12/23 Albuterol Sulf [Ventolin Hfa 1 - 2 puffs INH Q4HR PRN #1 each 09/23/23 Inhaler] Azithromycin [Zithromax] 0 mg PO DAILY #6 tablet 09/23/23 predniSONE [Deltasone] 10 mg PO [id number] #42 tab 09/23/23 - Allergies Allergies/Adverse Reactions: Allergies Allergy/AdvReac Type Severity Reaction Status Date / Time No Known Drug Allergies Allergy Verified 09/23/23 06:17 - Social History Does the pt smoke?: Yes Smoking Status: Current every day smoker Does the pt drink ETOH?: No Does the pt have substance abuse?: No - Immunizations Immunizations are current?: Yes - POLST Patient has POLST: No POLST Status: Full Code PD ED PE NORMAL - Vitals Vital signs reviewed: Yes - General General: Alert and oriented X 3, No acute distress, Well developed/nourished - HEENT HEENT: Atraumatic, EOMI, Moist mucous membranes - Neck Neck: Supple, no meningeal sign - Cardiac Cardiac: RRR, No murmur - Respiratory Respiratory: No respiratory distress, Other (Mildly coarse breath sounds but no wheezing or prolonged expiratory phase.) - Abdomen Abdomen: Soft, Non tender, Non distended - Derm Derm: Warm and dry - Extremities Extremities: No deformity - Neuro Neuro: Alert and oriented X 3 - Psych Psych: Normal mood, Normal affect Results - Vitals Vitals: Oxygen O2 Source Room air - Labs Labs: Laboratory Tests 09/23/23 06:15 Nasal Adenovirus (PCR) NOT DETECTED Nasal B. parapertussis DNA (PCR) NOT DETECTED Nasal Coronavir 229E PCR NOT DETECTED Nasal Coronavir HKU1 PCR NOT DETECTED Nasal Coronavir NL63 PCR NOT DETECTED Nasal Coronavir OC43 PCR NOT DETECTED Nasal Enterovir/Rhinovir PCR NOT DETECTED Nasal Influenza B PCR NOT DETECTED Nasal Influenza A PCR NOT DETECTED Nasal Parainfluen 1 PCR NOT DETECTED Nasal Parainfluen 2 PCR NOT DETECTED Nasal Parainfluen 3 PCR NOT DETECTED Nasal Parainfluen 4 PCR NOT DETECTED Nasal RSV (PCR) NOT DETECTED Nasal B.pertussis DNA PCR NOT DETECTED Nasal C.pneumoniae (PCR) NOT DETECTED Khurram Human Metapneumo PCR NOT DETECTED Nasal M.pneumoniae (PCR) DETECTED A Nasal SARS-CoV-2 (PCR) NOT DETECTED - Rads (name of study) CXR Relevant Findings:: Final report received, See rad report (L midlung infiltrate) PD Medical Decision Making - ED course Complexity details: reviewed results, re-evaluated patient, considered differential, d/w patient ED course: The pt was treated symptomatically with decadron in the ED. He was not wheezing, so I did not feel a neb would be helpful at this time. CXR was done and showed a L-sided infiltrate. Resp PCR panel was pending at the time pt was discharged (after receiving Rocephin and Zithromax), but later showed nasal M. pneumoniae. We discussed home management of the sx, the need to take antibiotics as directed, and the usual indications for return. Departure - Departure Disposition: 01 Home, Self Care Clinical Impression: Acute viral syndrome Pneumonia Qualifiers: Pneumonia type: due to unspecified organism Laterality: left Lung location: lower lobe of lung Qualified Code(s): J18.9 - Pneumonia, unspecified organism Condition: Stable Instructions: ED Pneumonia Adult, ED Viral Syndrome Prescriptions: Albuterol Sulf [Ventolin Hfa Inhaler] 1 - 2 puffs INH Q4HR PRN #1 each PRN Reason: Shortness Of Air/Wheezing predniSONE [Deltasone] 10 mg PO [id number] #42 tab Azithromycin [Zithromax] 0 mg PO DAILY #6 tablet Comments: Your x-ray shows what appears to be a very small area of pneumonia in the upper part of your left lower lung. Because of this, you have been started on antibiotics here in the emergency department. You almost certainly started out with a viral illness, but the smoking and COPD do predispose you to higher risk of developing bacterial infections. You have been given first doses of your medications here and prescriptions for the same have been electronically transmitted to the [facility] here in [place]. I have included in these prescriptions an albuterol inhaler and a prednisone (steroid) taper. This should help with your breathing and coughing. Schedule a follow-up appointment with your primary doctor. Forms: PCP List Discharge Date/Time: 09/23/23 08:06
[2023-09-23] MEDS ORDERED: DEXAMETHASONE 10 MG/ML VIAL ONE (06:41)
[2023-09-23] MEDS: DEXAMETHASONE 10 MG/ML VIAL IM STA (06:42)
[2023-09-23 07:12] LABS: B. PARAPERTUSSIS- RESP PCR PAN NOT DETECTED; B. PERTUSSIS- RESP PCR PANEL NOT DETECTED; C. PNEUMONIAE- RESP PCR PANEL NOT DETECTED; CORONAVIRUS 229E-RESP PCR NOT DETECTED; CORONAVIRUS HKU1-RESP PCR NOT DETECTED; CORONAVIRUS NL63-RESP PCR NOT DETECTED; CORONAVIRUS OC43-RESP PCR NOT DETECTED; HUMAN METAPNEUMOVIRUS NOT DETECTED; INFLUENZA A- RESP PCR PANEL NOT DETECTED; INFLUENZA B - RESP PCR PANEL NOT DETECTED; M. PNEUMONIAE- RESP PCR PANEL DETECTED; PARAINFLUENZA VIRUS 1 NOT DETECTED; PARAINFLUENZA VIRUS 2 NOT DETECTED; PARAINFLUENZA VIRUS 3 NOT DETECTED; PARAINFLUENZA VIRUS 4 NOT DETECTED; RHINOVIRUS/ENTEROVIRUS NOT DETECTED; RSV- RESP PCR PANEL NOT DETECTED; SARS-CoV-2 -RESP PCR PANEL NOT DETECTED
[2023-09-23] MEDS: LIDOCAINE 1% 2 ML VIAL MC STA (07:56)
[2023-09-23] MEDS: cefTRIAXone 1 GM VIAL IM STA (07:56)
[2023-09-23] MEDS: AZITHROMYCIN 250 MG TABLET PO STA (07:57)
[2023-09-23 08:17] VITALS: BP 136/82; O2SAT 98
--- NOTE | 2023-09-23 09:03 | XRAY Report ---
PROCEDURE: Chest 2V INDICATIONS: cough TECHNIQUE: 2 views of the chest were acquired. COMPARISON: 03/24/2021. FINDINGS: Surgical changes and devices: None. Lungs and pleura: No pleural effusions or pneumothorax. Left midlung opacity. Mediastinum: Mediastinal contours appear normal. Heart size is normal. Mika suspicious bony lesions. Overlying soft tissues appear unremarkable. ppear unremarkable. IMPRESSION: Left midlung opacity suggestive of pneumonia. Recommend follow-up radiograph to resolution.. Agree with preliminary read. Reviewed by: Sumit Crenshaw MD on 09/23/2023 9:02 AM PDT Approved by: Sumit Crenshaw MD on 09/23/2023 9:02 AM PDT Station ID: [id number]
== END 2023-09-23 08:06 | disposition home or self-care (01) ==
LOC: ED 06:07
DX: J18.9 Pneumonia, unspecified organism (principal); B34.9 Viral infection, unspecified; J44.9 Chronic obstructive pulmonary disease, unspecified; F17.200 Nicotine dependence, unspecified, uncomplicated; Z79.899 Other long term (current) drug therapy
CPT/HCPCS: 87633; 96372; 99283; 99284

== ENCOUNTER 2023-10-01 10:44 | Emergency (ER) | payer MEDICAID ==
--- NOTE | 2023-10-01 11:27 | ED Physician Documentation ---
PD HPI LOWER EXT INJURY - Stated complaint Stated Complaint: RT ANKLE PX, INJURY - Chief complaint Chief Complaint: Trauma Ext - Additional information Additional information: 38-year-old male with history of COPD, depression, bipolar disorder presents emergency department for right ankle injury. Patient says that he stepped in a hole and felt a twisting sensation of his right ankle and fell, this happened prior to arrival. Pt has taken advil which did help with pain. Most of his pain is to his right lateral malleolus no Achilles pain no pain to the dorsal aspect of his foot. Able to flex and extend ankle but not without pain. Patient denies hitting his head and he is not on any blood thinners. PD PAST MEDICAL HISTORY - Past Medical History Past Medical History: Yes Cardiovascular: None Respiratory: COPD Neuro: None Endocrine/Autoimmune: Other GI: None : None HEENT: None Psych: Depression, Bipolar disorder Musculoskeletal: None Derm: None - Past Surgical History Past Surgical History: No - Present Medications Home Medications: Ambulatory Orders Medication Instructions Recorded Confirmed Albuterol Sulf [Ventolin Hfa 1 - 2 puffs INH Q4HR PRN #1 each 09/23/23 10/01/23 Inhaler] predniSONE [Deltasone] 10 mg PO [id number] #42 tab 09/23/23 10/01/23 - Allergies Allergies/Adverse Reactions: Allergies Allergy/AdvReac Type Severity Reaction Status Date / Time No Known Drug Allergies Allergy Verified 10/01/23 11:04 - Social History Does the pt smoke?: Yes Smoking Status: Current every day smoker Does the pt drink ETOH?: Yes Does the pt have substance abuse?: Yes Substance Use and Type: CBD oil / Products - Immunizations Immunizations are current?: No Immunizations: TDAP >10years/unknown - POLST Patient has POLST: No POLST Status: Full Code PD ED PE NORMAL - Vitals Vital signs reviewed: Yes - General General: Alert and oriented X 3, No acute distress, Other (obese) - HEENT HEENT: Atraumatic, PERRL - Derm Derm: Normal color, Warm and dry, No rash, Other (No open wounds no abrasions no lesions minimal ecchymosis.) - Extremities Extremities: Other (Right ankle: Able to flex and extend there is tenderness with flexion extension no Achilles tenderness no dorsal foot tenderness tenderness to the lateral portion of the malleolus. Minimal ecchymosis no open wounds no abrasions CMS intact able to flex and extend all toes) Results - Vitals Vitals: Vital Signs - 24 hr 10/01/23 11:04 Temperature 36.5 C Heart Rate 72 Respiratory 16 Rate Blood Pressure 139/85 H O2 Saturation 96 Oxygen O2 Source Room air Departure - Departure Forms: PCP List
[2023-10-01] MEDS: ACETAMINOPHEN 500 MG TABLET PO STA (11:49)
--- NOTE | 2023-10-01 11:52 | XRAY Report ---
PROCEDURE: Ankle 3+V RT INDICATIONS: Trauma TECHNIQUE: 3 views of the ankle were acquired. COMPARISON: None. FINDINGS: Bones: No acute fractures or dislocations. Ankle mortise is normally aligned. No suspicious bony l esions. Remote avulsion fractures of the medial and lateral malleolus. Soft tissues: Small tibiotalar joint effusion. Achilles tendon appears normal. IMPRESSION: No acute bony abnormality. Small tibiotalar joint effusion. Remote fractures of the malleoli. Reviewed by: Akira Madrid MD on 10/01/2023 10:51 AM THOM Approved by: Akira Madrid MD on 10/01/2023 10:51 AM AKGERMAINE Station ID: [id number]
[2023-10-01 12:31] VITALS: BP 130/80; O2SAT 98
== END 2023-10-01 12:28 | disposition home or self-care (01) ==
LOC: ED 10:44
DX: S99.911A Unspecified injury of right ankle, initial encounter (principal); X50.1XXA Overexertion from prolonged static or awkward postures, initial encounter; F17.200 Nicotine dependence, unspecified, uncomplicated
CPT/HCPCS: 73610; 99283; A9270

== ENCOUNTER 2023-11-13 06:53 | Outpatient (CLI) | payer MEDICAID ==
[2023-11-13 07:05] LABS: BASOPHILS # (AUTO) 0.1 10^3/uL (0.0-0.1); BASOPHILS % (AUTO) 0.8 %; EOSINOPHILS # (AUTO) 0.2 10^3/uL (0.0-0.7); EOSINOPHILS % (AUTO) 2.8 %; HCT - HEMATOCRIT 42.3 % (42.0-52.0); HGB - HEMOGLOBIN 14.4 g/dL (14.0-18.0); LYMPHOCYTES # (AUTO) 1.9 10^3/uL (1.5-3.5); LYMPHOCYTES % (AUTO) 31.1 %; MEAN CORPUSCULAR HEMOGLOBIN 29.9 pg (27.0-31.0); MEAN CORPUSCULAR VOLUME 87.8 fL (80.0-94.0); MEAN PLATELET VOLUME 9.5 fL (7.4-11.4); MONOCYTES # (AUTO) 0.6 10^3/uL (0.0-1.0); MONOCYTES % (AUTO) 9.9 %; NEUTROPHILS # (AUTO) 3.3 10^3/uL (1.5-6.6); NEUTROPHILS % (AUTO) 54.6 %; PLT - PLATELET COUNT 247 10^3/uL (130-450); RED BLOOD COUNT 4.82 10^6/uL (4.70-6.10); RED CELL DISTRIBUTION WIDTH 12.7 % (12.0-15.0); WHITE BLOOD COUNT 6.1 x10^3/uL (4.8-10.8)
== END 2023-11-13 06:54 | disposition home or self-care (01) ==
LOC: LAB 06:53
PROVIDERS: ATTEND Nurse Practitioner
DX: J18.9 Pneumonia, unspecified organism (principal)
CPT/HCPCS: 36415; 85025